=== PATIENT | female | born 1940 | race Caucasian/White ===

== ENCOUNTER → 2016-12-20 | Outpatient (CLI) | payer OTHER, MEDICAID ==
[2015-02-01 10:58] VITALS: BP 132/62
[~2016-12-20] MED LIST: GABA-585 PO; HYDR200T PO; LEVO75TA PO; MELO7.5T29 PO; METH2.5T PO; PRED5TAB PO; SERT25TA PO; TRIA1CAP3 PO
--- NOTE | 2016-12-20 12:37 | KCIC ---
3 views lumbar spine dated 12/20/2016. Comparison made to MRI dated 05/07/2015 Clinical indication: Chronic low back pain. FINDINGS: AP lateral and coned-down views of lumbosacral junction were obtained. Grade 1 anterolisthesis of L3 on L4 and L4 on L5. There is severe disc space narrowing at the L3-L4 level, progressed from prior exam. There is also progressive disc space narrowing at the L3-L4 level. Mild hypertrophic change of the superior and inferior endplates throughout. Moderate arthrosis of the lower lumbar apophyseal joints. Vertebral body heights are maintained. IMPRESSION: 1. Moderate multilevel spondylosis with progressive disc space narrowing at L3-L4 and L4-L5. 2. Grade 1 anterolisthesis of L3 on L4 and L4 on L5, likely degenerative. Electronically signed by: Jt Bolden MD (12/20/2016 12:34 PM) [facility]
== END | disposition home or self-care (01) ==
LOC: KCIC 11:45
PROVIDERS: ATTEND Psychiatry & Neurology Neurology with Special Qualifications in Child Neurology
DX: M51.36 Other intervertebral disc degeneration, lumbar region (principal); G62.9 Polyneuropathy, unspecified; G89.29 Other chronic pain; M47.896 Other spondylosis, lumbar region
CPT/HCPCS: 72100

== ENCOUNTER 2016-12-29 07:12 | Day surgery (SDC) | payer OTHER, MEDICAID ==
[~2016-12-29] VITALS: Ht 162.6 cm; Wt 130.0 kg
[~2016-12-29 07:12] MED LIST changes: +HYDROmorphone 2 MG/ML VIAL IV PRN; +IV RINGERS,LACTATED 1000ML 1,000 ML IV SCH; +LIDOCAINE 1% 1 ML SYRINGE. ID PRN; +MORPHINE SULFATE 2 MG/ML DISP.SYRIN. IV PRN; +ONDANSETRON PF 4 MG/2 ML VIAL. IV PRN; +PROCHLORPERAZINE 10 MG/2 ML VIAL. IV PRN; +fentaNYL PF VIAL 100 MCG/2 ML VIAL IV PRN
[2016-12-29] MEDS ORDERED: LIDOCAINE 2% PF Vial for OR 5 ML VIAL. ONE ×6 (07:48→07:54)
[2016-12-29] MEDS ORDERED: PROPOFOL 0 ML IV ONE (07:48)
[2016-12-29] MEDS ORDERED: 0.9 % SODIUM CHLORIDE 50 ML VIAL. IJ ONE (07:48)
[2016-12-29] MEDS ORDERED: fentaNYL PF VIAL 100 MCG/2 ML VIAL ONE ×2 (07:56→11:58)
[2016-12-29] MEDS ORDERED: BUPIVACAINE 0.25% 50 ML VIAL. ONE (09:01)
[2016-12-29] MEDS ORDERED: HYDR-965 PO (11:44)
--- NOTE | 2016-12-29 11:44 | DISCH ---
DISCHARGE INSTRUCTIONS Condition on Discharge Condition on Discharge: Stable Activity After Discharge Activity Instructions for Disc: Other, see below Other activity instructions: gentle elbow motion, fine motor use Diet after Discharge Diet after Discharge: Regular Wound Incision Care Wound/Incision Care: Ice to area for comfort, Change dressing Other wound/incision instructi: remove dressing 3 days may then shower Contacting the DRDavid after DC Call your doctor for: Concerns you may have Follow-Up Follow up with: Dee 10 days RAE SLADE MD Dec 29, 2016 11:44
[2016-12-29] MEDS ORDERED: HYDROmorphone 2 MG/ML VIAL ONE (11:58)
[2016-12-29] MEDS: fentaNYL PF VIAL 100 MCG/2 ML VIAL IV PRN ×2 (12:03→12:33)
[2016-12-29] MEDS ORDERED: HYDROcodone/APAP 7.5/325MG 1 TAB TABLET ONE (12:44)
[2016-12-29] MEDS ORDERED: HYDROcodone/APAP 7.5/325MG 1 TAB TABLET PO ONE (12:45)
[2016-12-29 13:35] VITALS: BP 131/66
--- NOTE | 2016-12-30 09:16 | PDOC ---
BRIEF OPERATIVE NOTE Date: Dec 29, 2016 Pre-Op Diagnosis left cubital tunnel syndrome Post-Op Diagnosis same Procedure Performed left cubital tunnel release Surgeon Dee Anesthesia Type: General Blood Loss 15cc Findings severe nerve compression Complications none RAE SLADE MD Dec 30, 2016 09:16
--- NOTE | 2016-12-30 11:42 | OP ---
DATE OF SURGERY: 12/29/2016 PREOPERATIVE DIAGNOSIS: Left cubital tunnel syndrome. POSTOPERATIVE DIAGNOSIS: Left cubital tunnel syndrome. PROCEDURE: Left cubital tunnel release. SURGEON: Kahlil Price M.D. ESTIMATED BLOOD LOSS: 15 mL. COMPLICATIONS: None. OPERATIVE INDICATIONS: The patient is a 76-year-old female with severe tingling and numbness in ulnar nerve distribution on the left, which had the condition verified by EMG testing. She is severely affected in her activities of daily living and ulnar nerve distribution sensation frequently gives her pain, numbness, tingling that affect her sleep and daily activities giving her weakness as well, has been progressive in nature despite non operative treatment. I have gone over with her the risks, benefits, postoperative course of the procedure for release and the possibility of infection, nerve or blood vessel damage, medical or other anesthetic complications among others. The rationale for postoperative rehabilitation mobilizing the nerve so it does not get scarred down, which can also cause later symptoms and above all that the nerve may not come back all the way, particularly the longer and the harder it is damaged and even getting the pressure off of that with the resultant and complete for even instability of the nerves. We talked about the possibility of transposition in the case where instability is present. All her questions were answered regarding the surgery and she wishes to proceed with operative evaluation and treatment. OPERATIVE TECHNIQUE: The patient was identified, procedure verified, the patient placed in supine position on the operating table. Tourniquet was placed on the upper arm and arm was prepped and draped in the standard sterile fashion. After timeout was performed, the patient and procedure identified and verified, left upper extremity was exsanguinated, tourniquet inflated to 250 mmHg. A curvilinear incision was made over the medial aspect of the elbow. Dissection carried out down to the root of the cubital tunnel area and the ulnar nerve was explored proximally first and the opening antecubital tunnel itself, there was noted to be very significant compression and hyperemia of the nerves. The release was carried out throughout the length of the cubital tunnel as well as proximally where the intermuscular septum was released and dissection excised to avoid impingement and distally including the insertion into the left supinator musculature and its overlying fascia. The nerve was noted to be stable throughout elbow range of motion after release and was noted to be freely. Thorough irrigation carried out with normal saline solution. Bleeding points were controlled by electrocautery. Tourniquet was let down. The subcutaneous closure was accomplished with buried Vicryl sutures, skin closure with jareth. Sterile soft dressings were applied. The patient was returned to recovery room in stable condition, having tolerated the procedure well. KAHLIL PRICE MD DR: TIN/kin JOB#: [id number] / [id number]
== END 2016-12-29 13:56 | disposition home or self-care (01) ==
LOC: SURG 07:12
PROVIDERS: ATTEND Orthopaedic Surgery
DX: G56.22 Lesion of ulnar nerve, left upper limb (principal); G62.9 Polyneuropathy, unspecified; I10 Essential (primary) hypertension; E66.9 Obesity, unspecified; Z68.45 Body mass index [BMI] 70 or greater, adult; E03.9 Hypothyroidism, unspecified; M19.90 Unspecified osteoarthritis, unspecified site; F32.9 Major depressive disorder, single episode, unspecified; Z98.41 Cataract extraction status, right eye; Z98.42 Cataract extraction status, left eye; Z96.643 Presence of artificial hip joint, bilateral; Z90.710 Acquired absence of both cervix and uterus; Z87.39 Personal history of other diseases of the musculoskeletal system and connective tissue; Z88.2 Allergy status to sulfonamides
CPT/HCPCS: 64718; C1769; J3010; J7120; J1170; J2704; J3490; J2001

== ENCOUNTER 2018-09-16 10:42 | Emergency (ER) | payer OTHER, MEDICAID ==
[~2018-09-16] VITALS: Ht 162.6 cm; Wt 97.1 kg
[~2018-09-16 10:42] MED LIST changes: +HYDR-3165 PO; -HYDR200T PO; +HYDR200T71 PO; -HYDROmorphone 2 MG/ML VIAL IV PRN; -IV RINGERS,LACTATED 1000ML 1,000 ML IV SCH; -LIDOCAINE 1% 1 ML SYRINGE. ID PRN; -MORPHINE SULFATE 2 MG/ML DISP.SYRIN. IV PRN; -ONDANSETRON PF 4 MG/2 ML VIAL. IV PRN; -PROCHLORPERAZINE 10 MG/2 ML VIAL. IV PRN; -fentaNYL PF VIAL 100 MCG/2 ML VIAL IV PRN
[2018-09-16] MEDS ORDERED: IV NORMAL SALINE 1000ML BAG 1,000 ML IV ONE (11:15)
[2018-09-16] MEDS ORDERED: methylPREDNISolone SOD SUCC PF 125 MG/2 ML VIAL. IV ONE (11:15)
[2018-09-16] MEDS ORDERED: IPRATRPIUM/ALBUTEROL 0.5/2.5MG 3 ML NEBU. NEB ONE (11:15)
--- NOTE | 2018-09-16 11:30 | EKG ---
[facility] [address] [place] [address] Test Date: 2018-09-16 Test Time: 10:59:55 Pat Name: KATIE SELF Department: Room: Gender: F [employer] Sales Representative: : 1940 Requested By: STAFF NON Order Number: [id number] Reading MD: Slick Marquez Measurements Intervals Uledi Rate: 101 P: SD: QRS: -91 QRSD: 122 T: 32 QT: 364 QTc: 479 Interpretive Statements SINUS RHYTHM PACS LEFT ANTERIOR FASCICULAR BLOCK INCOMPLETE RIGHT BUNDLE BRANCH BLOCK RVH WITH REPOLARIZATION ABNORMALITY Electronically Signed On 09-20-2018 9:19:08 CDT by Slick Marquez
[2018-09-16 11:32] LABS: BASO # 0.1 x10^3/uL (0.0-0.2); BASO % 1 % (0-3); EOS # 0.2 x10^3/uL (0.0-0.7); EOS % 3 % (0-3); HEMATOCRIT 38.3 % (36.0-47.0); HEMOGLOBIN 12.6 g/dL (12.0-15.5); LYMPH # 1.5 x10^3/uL (1.0-4.8); LYMPH % 18 % (24-48); MEAN CORPUSCULAR HEMOGLOBIN 32 pg (25-35); MEAN CORPUSCULAR HGB CONC 33 g/dL (31-37); MEAN CORPUSCULAR VOLUME 97 fL (79-100); MONO # 0.8 x10^3/uL (0.0-1.1); MONO % 10 % (0-9); NEUT # 5.7 x10^3uL (1.8-7.7); NEUT % 68 % (31-73); PLATELET COUNT 413 x10^3/uL (140-400); RED BLOOD COUNT 3.94 x10^6/uL (3.50-5.40); RED CELL DISTRIBUTION WIDTH 22.1 % (11.5-14.5); WHITE BLOOD COUNT 8.3 x10^3/uL (4.0-11.0)
--- NOTE | 2018-09-16 11:35 | RAD ---
CHEST PA LATERAL History: Cough and congestion for 3 weeks Comparison: February 10, 2013 Findings: 2 views of the chest are submitted. There is no infiltrate, pneumothorax, or effusion. The cardiac silhouette is within normal limits in size. There is somewhat tortuous thoracic aorta, atherosclerotic calcification near arch. Impression: 1. There is no radiographic evidence of acute cardiopulmonary disease. Electronically signed by: Danny Diaz MD (09/16/2018 11:32 AM) [facility]
[2018-09-16 11:40] LABS: CALCIUM 9.1 mg/dL (8.5-10.1); CREATININE 0.9 mg/dL (0.6-1.0); GFR 60.6; POTASSIUM 3.7 mmol/L (3.5-5.1)
[2018-09-16 11:46] LABS: ALBUMIN 3.7 g/dL (3.4-5.0); ALBUMIN/GLOBULIN RATIO 0.9 (1.0-1.7); TOTAL BILIRUBIN 0.5 mg/dL (0.2-1.0)
[2018-09-16] MEDS ORDERED: cefTRIAXone IV Push 1 GM VIAL. IVP ONE (12:15)
[2018-09-16 12:29] LABS: ANISOCYTOSIS SLIGHT; PLT ESTIMATE ADEQUATE (ADEQUATE)
[2018-09-16 12:30] LABS: BIZZARE CELLS OCC
[2018-09-16] MEDS ORDERED: AZIT250T PO (12:36)
[2018-09-16] MEDS ORDERED: ALBU2.5V8 INH (12:36)
[2018-09-16] MEDS ORDERED: BENZ100C PO (12:36)
[2018-09-16] MEDS ORDERED: PRED50TA PO (12:36)
--- NOTE | 2018-09-16 12:36 | PHYS DOC ---
Past Medical History Past Medical History: Arthritis, Depression, Hypothyroid, Other Additional Past Medical Histor: CARPAL TUNNEL (ROB THIBODEAUX APRN) Past Surgical History: Hip Replacement, Hysterectomy, Other Additional Past Surgical Histo: BACK, NECK (ROB THIBODEAUX APRN) Alcohol Use: None Drug Use: None (ROB THIBODEAUX APRN) Adult General Chief Complaint Chief Complaint: COUGH HPI HPI Patient is a 78 year old female who presents with a worsening cough with wheezing and mild shortness of air 3 weeks. The patient saw her primary care provider approximately 2 weeks ago. She was told to use [id number] cough and cold medication. The patient is been taking Delsym and Mucinex. She states she has continued to worsen. She denies a history of asthma or COPD. (ROB THIBODEAUX APRN) Review of Systems Review of Systems Constitutional: Denies fever or chills [] Eyes: Denies change in visual acuity, redness, or eye pain [] HENT: Denies nasal congestion or sore throat [] Respiratory: See history of present illness Cardiovascular: No additional information not addressed in HPI [] GI: Denies abdominal pain, nausea, vomiting, bloody stools or diarrhea [] : Denies dysuria or hematuria [] Musculoskeletal: Denies back pain or joint pain [] Integument: Denies rash or skin lesions [] Neurologic: Denies headache, focal weakness or sensory changes [] Endocrine: Denies polyuria or polydipsia [] All other systems were reviewed and found to be within normal limits, except as documented in this note. (ROB THIBODEAUX APRN) Current Medications Current Medications Current Medications Medications (Trade) Dose Ordered Sig/Sandra Start Time Stop Time Status Last Admin Dose Admin Albuterol/ Ipratropium (Duoneb) 3 ml 1X ONCE 09/16/18 11:15 09/16/18 11:16 DC 09/16/18 11:27 3 ML Ceftriaxone Sodium (Rocephin) 1 gm 1X ONCE 09/16/18 12:15 09/16/18 12:16 DC 09/16/18 12:21 1 GM Methylprednisolone Sodium Succinate (SOLU-Medrol 125MG VIAL) 125 mg 1X ONCE 09/16/18 11:15 09/16/18 11:16 DC 09/16/18 11:32 125 MG Sodium Chloride 1,000 ml @ 1,000 mls/hr 1X ONCE 09/16/18 11:15 09/16/18 12:14 DC 09/16/18 11:33 1,000 MLS/HR (ELY ROBLES MD) Allergies Allergies Allergies Coded Allergies Type Severity Reaction Last Updated Verified Sulfa (Sulfonamide Antibiotics) Allergy Unknown 05/07/15 No (ELY ROBLES MD) Physical Exam Physical Exam Constitutional: Well developed, well nourished, no acute distress, non-toxic appearance. [] HENT: Normocephalic, atraumatic, bilateral tympanic membranes normal, oropharynx moist, no oral exudates, nose normal. [] Eyes: PERRLA, EOMI, conjunctiva normal, no discharge. [] Neck: Normal range of motion, no tenderness, supple, no stridor. [] Cardiovascular:Heart rate regular rhythm, no murmur [] Lungs & Thorax: Bilateral breath sounds show wheezing throughout Abdomen: Bowel sounds normal, soft, no tenderness, no masses, no pulsatile masses. [] Skin: Warm, dry, no erythema, no rash. [] Back: No tenderness, no CVA tenderness. [] Extremities: No tenderness, no cyanosis, no clubbing, ROM intact, no edema. [] Neurologic: Alert and oriented X 3, normal motor function, normal sensory function, no focal deficits noted. [] Psychologic: Affect normal, judgement normal, mood normal. [] (ROB THIBODEAUX APRN) Current Patient Data Vital Signs Vital Signs Date Time Temp Pulse Resp B/P (MAP) Pulse Ox O2 Delivery O2 Flow Rate FiO2 09/16/18 13:01 84 18 123/60 (81) 94 Room Air 09/16/18 11:06 98.2 98.2 (ELY ROBLES MD) Lab Values Laboratory Tests Test 09/16/18 11:00 09/16/18 11:18 White Blood Count 8.3 x10^3/uL (4.0-11.0) Red Blood Count 3.94 x10^6/uL (3.50-5.40) Hemoglobin 12.6 g/dL (12.0-15.5) Hematocrit 38.3 % (36.0-47.0) Mean Corpuscular Volume 97 fL (79-100) Mean Corpuscular Hemoglobin 32 pg (25-35) Mean Corpuscular Hemoglobin Concent 33 g/dL (31-37) Red Cell Distribution Width 22.1 % (11.5-14.5) H Platelet Count 413 x10^3/uL (140-400) H Neutrophils (%) (Auto) 68 % (31-73) Lymphocytes (%) (Auto) 18 % (24-48) L Monocytes (%) (Auto) 10 % (0-9) H Eosinophils (%) (Auto) 3 % (0-3) Basophils (%) (Auto) 1 % (0-3) Neutrophils # (Auto) 5.7 x10^3uL (1.8-7.7) Lymphocytes # (Auto) 1.5 x10^3/uL (1.0-4.8) Monocytes # (Auto) 0.8 x10^3/uL (0.0-1.1) Eosinophils # (Auto) 0.2 x10^3/uL (0.0-0.7) Basophils # (Auto) 0.1 x10^3/uL (0.0-0.2) Platelet Estimate Adequate (ADEQUATE) Anisocytosis Slight RBC Morphology Bizarre Forms Occ Sodium Level 137 mmol/L (136-145) Potassium Level 3.7 mmol/L (3.5-5.1) Chloride Level 98 mmol/L (98-107) Carbon Dioxide Level 27 mmol/L (21-32) Anion Gap 12 (6-14) Blood Urea Nitrogen 20 mg/dL (7-20) Creatinine 0.9 mg/dL (0.6-1.0) Estimated GFR (Cockcroft-Gault) 60.6 BUN/Creatinine Ratio 22 (6-20) H Glucose Level 95 mg/dL (70-99) Calcium Level 9.1 mg/dL (8.5-10.1) Total Bilirubin 0.5 mg/dL (0.2-1.0) Aspartate Amino Transferase (AST) 23 U/L (15-37) Alanine Aminotransferase (ALT) 20 U/L (14-59) Alkaline Phosphatase 102 U/L (46-116) Total Protein 8.0 g/dL (6.4-8.2) Albumin 3.7 g/dL (3.4-5.0) Albumin/Globulin Ratio 0.9 (1.0-1.7) L Lactic Acid Level 1.1 mmol/L (0.4-2.0) Laboratory Tests 09/16/18 11:00 Laboratory Tests 09/16/18 11:00 Microbiology 09/16/18 Blood Culture - Preliminary, Resulted NO GROWTH AFTER 1 DAY (ELY ROBLES MD) EKG EKG [] (ROB THIBODEAUX APRN) Radiology/Procedures Radiology/Procedures [] (ROB THIBODEAUX APRN) Course & Med Decision Making Course & Med Decision Making Pertinent Labs and Imaging studies reviewed. (See chart for details) []The patient was given Solu-Medrol and a DuoNeb treatment in the emergency department with resolution of her wheezing. She was given a gram of Rocephin. (ROB THIBODEAUX APRN) Course & Med Decision Making Staff Physician Addendum: I was working in the ER during the course of this patient's visit. I was available for consultation as needed, but I was not directly involved in the care of this patient. (ELY ROBLES MD) Dragon Disclaimer Dragon Disclaimer This electronic medical record was generated, in whole or in part, using a voice recognition dictation system. (ROB THIBODEAUX APRN) Departure Departure Impression: Primary Impression: Bronchitis Disposition: 01 HOME, SELF-CARE Condition: STABLE Referrals: FRANCISCO VEGA MD (PCP) Patient Instructions: Acute Bronchitis Additional Instructions: Take medication as directed. Follow-up with your primary care provider in one week for recheck or return to the emergency department if worsening. Scripts Benzonatate (TESSALON PERLE) 100 Mg Capsule 1 CAP PO TID for cough, #21 CAP Prov: ROB THIBODEAUX APRN 09/16/18 Albuterol Sulfate (PROAIR HFA INHALER) 8.5 Gm Hfa.aer.ad 1 PUFF INH PRN Q6HRS PRN for SHORTNESS OF BREATH, #1 INHALER 0 Refills Prov: ROB THIBODEAUX APRN 09/16/18 Prednisone (PREDNISONE) 50 Mg Tablet 1 TAB PO DAILY for respiratory infection, #5 TAB Prov: ROB THIBODEAUX APRN 09/16/18 Azithromycin (ZITHROMAX) 250 Mg Tablet 1 PKG PO UD for respiratory infection, #1 PKG Prov: ROB THIBODEAUX APRN 09/16/18 ROB THIBODEAUX APRN Sep 16, 2018 12:36 ELY ROBLES MD Sep 17, 2018 18:38
[2018-09-16 13:01] VITALS: BP 123/60
== END 2018-09-16 13:05 | disposition home or self-care (01) ==
LOC: ER 10:42
DX: J40 Bronchitis, not specified as acute or chronic (principal); E03.9 Hypothyroidism, unspecified; Z88.2 Allergy status to sulfonamides
CPT/HCPCS: 36415; 71046; 80053; 83605; 85025; 87040; 93005; 94640; 96374; 96375; 99285; J0696; J2930; J7030; J7620

== ENCOUNTER 2019-03-17 09:15 | Emergency (ER) | payer OTHER, MEDICAID ==
[~2019-03-17] VITALS: Ht 160 cm; Wt 99.8 kg
[~2019-03-17 09:15] MED LIST changes: +ALBU2.5V8 INH; +AZIT250T PO; +BENZ100C PO; +PRED50TA PO
--- NOTE | 2019-03-17 11:24 | PHYS DOC ---
Past Medical History Past Medical History: Arthritis, Depression, Hypothyroid, Other Additional Past Medical Histor: CARPAL TUNNEL Past Surgical History: Hip Replacement, Hysterectomy, Other Additional Past Surgical Histo: BACK, NECK Alcohol Use: None Drug Use: None Adult General Chief Complaint Chief Complaint: [facility] HPI Patient is a 78 year old female who presents with complaining of fall and back pain. Patient states she had an accidental fall from a standing position and landed on her gluteal area with pain in tailbone and low back and left hand and this morning had problem with walking to the bathroom even with using care walker. Patient rated her pain as a moderate pain and states she took tramadol this morning and doesn't want to have pain medication in ER. Patient denies loss of consciousness and other injuries and focal neurodeficit and taking blood thinner medication Review of Systems Review of Systems Constitutional: Denies fever or chills [] Eyes: Denies change in visual acuity, redness, or eye pain [] HENT: Denies nasal congestion or sore throat [] Respiratory: Denies cough or shortness of breath [] Cardiovascular: No additional information not addressed in HPI [] GI: Denies abdominal pain, nausea, vomiting, bloody stools or diarrhea [] : Denies dysuria or hematuria [] Musculoskeletal: Reports back pain and joint pain Integument: Denies rash or skin lesions [] Neurologic: Denies headache, focal weakness or sensory changes [] Endocrine: Denies polyuria or polydipsia [] All other systems were reviewed and found to be within normal limits, except as documented in this note. Allergies Allergies Allergies Coded Allergies Type Severity Reaction Last Updated Verified Sulfa (Sulfonamide Antibiotics) Allergy Unknown 05/07/15 No Physical Exam Physical Exam Constitutional: Well developed, well nourished, mild distress, non-toxic appearance. [] HENT: Normocephalic, atraumatic. Eyes: PERRLA, EOMI, conjunctiva normal, no discharge. [] Neck: Normal range of motion, no tenderness, supple, no stridor. [] Cardiovascular:Heart rate regular rhythm, no murmur [] Lungs & Thorax: Bilateral breath sounds clear to auscultation [] Abdomen: Bowel sounds normal, soft, no tenderness, no masses, no pulsatile masses. [] Skin: Warm, dry, no erythema, no rash. [] Back: No midline tenderness, coccyx tenderness without deformity, no CVA tenderness. [] Extremities: No tenderness, no cyanosis, no clubbing, ROM intact, no edema, left hand without sign of injury or edema. [] Neurologic: Alert and oriented X 3, no focal deficits noted. [] Psychologic: Affect normal, judgement normal, mood normal. [] Current Patient Data Vital Signs Vital Signs Date Time Temp Pulse Resp B/P (MAP) Pulse Ox O2 Delivery O2 Flow Rate FiO2 03/17/19 11:28 72 20 97 03/17/19 09:32 96.9 150/68 (95) Room Air 96.9 EKG EKG [] Radiology/Procedures Radiology/Procedures [][facility] [address] [place] [address] IMAGING REPORT Signed PATIENT: KATIE SELF ACCOUNT: [id number] : 1940 LOCATION: ER AGE: 78 SEX: F EXAM STATUS: REG ER ORD. PHYSICIAN: EDEL ACUÑA MD REASON: fall, pain left hand PROCEDURE: HAND LEFT 3V HAND LEFT 3V History: Fall. Pain. Technique: 3 views left hand. Comparison: None. Findings: Normal alignment. No fracture. Advanced first carpal metacarpal triscaphe DJD. Chronic ununited ulnar styloid fracture. Impression: 1. No acute osseous abnormality. 2. Advanced first carpometacarpal and triscaphe DJD. 3. Chronic ununited ulnar styloid fracture. Electronically signed by: Derek Patel DO (03/17/2019 11:27 AM) [facility] DICTATED and SIGNED BY: DEREK PATEL DO DATE: 03/17/19 1127 [facility] [address] [place] [address] IMAGING REPORT Signed PATIENT: KATIE SELF ACCOUNT: [id number] : 1940 LOCATION: ER AGE: 78 SEX: F EXAM STATUS: REG ER ORD. PHYSICIAN: EDEL ACUÑA MD REASON: fall,pain lower back PROCEDURE: LUMBAR SPINE 2-3V LUMBAR SPINE 2-3V, SACRUM COCCYX 3V History: Fall. Low back pain. Technique: 3 views lumbar spine and 3 views sacrum. Comparison: None. Findings: Mild rightward curvature of the lumbar spine. Grade 1 anterolisthesis L3 on L4 and L4 on L5. Normal vertebral body height. No fracture. Advanced multilevel lumbar degenerative disc disease and facet arthropathy. Bilateral hip arthroplasties. Normal alignment of the sacroiliac joints. No fracture. Impression: 1. No acute osseous abnormality. 2. Advanced multilevel lumbar spondylosis. Electronically signed by: Derek Patel DO (03/17/2019 11:24 AM) [facility] DICTATED and SIGNED BY: DEREK PATEL DO DATE: 03/17/191123 [facility] [address] [place] [address] IMAGING REPORT Signed PATIENT: KATIE SELF ACCOUNT: [id number] : 1940 LOCATION: ER AGE: 78 SEX: F EXAM STATUS: REG ER ORD. PHYSICIAN: EDEL ACUÑA MD REASON: fall,pain in tailbone PROCEDURE: SACRUM & COCCYX 3V LUMBAR SPINE 2-3V, SACRUM COCCYX 3V History: Fall. Low back pain. Technique: 3 views lumbar spine and 3 views sacrum. Comparison: None. Findings: Mild rightward curvature of the lumbar spine. Grade 1 anterolisthesis L3 on L4 and L4 on L5. Normal vertebral body height. No fracture. Advanced multilevel lumbar degenerative disc disease and facet arthropathy. Bilateral hip arthroplasties. Normal alignment of the sacroiliac joints. No fracture. Impression: 1. No acute osseous abnormality. 2. Advanced multilevel lumbar spondylosis. Electronically signed by: Derek Patel DO (03/17/2019 11:24 AM) [facility] DICTATED and SIGNED BY: DEREK PATEL DO DATE: 03/17/191123 Course & Med Decision Making Course & Med Decision Making Pertinent Imaging studies reviewed. (See chart for details) Evaluation of patient in ER showed 78-year-old male patient with a fall and injury to tailbone last night. Patient had unremarkable physical exam except for tenderness of the coccyx area. X-ray of left hand and lumbar spine and coccyx and sacral area was unremarkable. Patient has pain medication at home and doesn't want to have pain medication. Patient was advised to apply ice on the affected area and follow-up with her primary care physician. I've spoken with the patient and/or caregivers. I've explained the patient's condition, diagnosis and treatment plan based on information available to me at this time. I've answered the patient's and/or caregivers questions and addressed any concerns. The patient and/or caregivers have a good understanding the patient's diagnosis, condition and treatment plan as can be expected at this point. Vital signs have been stabilized. The patient's condition is stable for discharge from the emergency department. The patient will pursue further outpatient evaluation with her primary care provider or other designated consulting physician as outlined in the discharge instructions. Patient and/or caregivers are agreeable to this plan of care and follow-up instructions have been explained in detail. The patient and/or caregivers have received these instructions in written format and expressed understanding of these discharge instructions. The patient and her caregivers are aware that if any significant change in condition or worsening of symptoms should prompt him to immediately return to this of the closest emergency department. If an emergent department is not readily available I would encourage him to call 911. Rosaura Disclaimer Dragon Disclaimer This electronic medical record was generated, in whole or in part, using a voice recognition dictation system. Departure Departure Impression: Primary Impression: Coccyx contusion Additional Impressions: Fall at home Contusion of hand excluding finger Acute lumbosacral myofascial strain Disposition: HOME, SELF-CARE (at 1141) Condition: STABLE Referrals: FRANCISCO VEGA MD (PCP) Patient Instructions: Contusion, Fall Prevention and Home Safety, Lumbosacral Strain, Tailbone Injury Additional Instructions: Apply ice on the affected area Follow-up with your primary care physician in 3-5 days Return to ER if not getting better Continue home pain medication Problem Qualifiers Primary Impression: Coccyx contusion Encounter type: initial encounter Qualified Codes: S30.0XXA - Contusion of lower back and pelvis, initial encounter Additional Impressions: Fall at home Encounter type: subsequent encounter Qualified Codes: W19.XXXD - Unspecified fall, subsequent encounter; Y92.009 - Unspecified place in unspecified non-institutional (private) residence as the place of occurrence of the external cause Acute lumbosacral myofascial strain Encounter type: subsequent encounter Qualified Codes: S39.012D - Strain of muscle, fascia and tendon of lower back, subsequent encounter EDEL ACUÑA MD Mar 17, 2019 11:24
--- NOTE | 2019-03-17 11:27 | RAD ---
LUMBAR SPINE 2-3V, SACRUM COCCYX 3V History: Fall. Low back pain. Technique: 3 views lumbar spine and 3 views sacrum. Comparison: None. Findings: Mild rightward curvature of the lumbar spine. Grade 1 anterolisthesis L3 on L4 and L4 on L5. Normal vertebral body height. No fracture. Advanced multilevel lumbar degenerative disc disease and facet arthropathy. Bilateral hip arthroplasties. Normal alignment of the sacroiliac joints. No fracture. Impression: 1. No acute osseous abnormality. 2. Advanced multilevel lumbar spondylosis. Electronically signed by: Derek Patel DO (03/17/2019 11:24 AM) [facility]
[2019-03-17 11:28] VITALS: BP 110/67
--- NOTE | 2019-03-17 11:30 | RAD ---
HAND LEFT 3V History: Fall. Pain. Technique: 3 views left hand. Comparison: None. Findings: Normal alignment. No fracture. Advanced first carpal metacarpal triscaphe DJD. Chronic ununited ulnar styloid fracture. Impression: 1. No acute osseous abnormality. 2. Advanced first carpometacarpal and triscaphe DJD. 3. Chronic ununited ulnar styloid fracture. Electronically signed by: Derek Patel DO (03/17/2019 11:27 AM) [facility]
== END 2019-03-17 11:53 | disposition home or self-care (01) ==
LOC: ER 09:15
DX: S39.012A Strain of muscle, fascia and tendon of lower back, initial encounter (principal); S30.0XXA Contusion of lower back and pelvis, initial encounter; S60.222A Contusion of left hand, initial encounter; M19.90 Unspecified osteoarthritis, unspecified site; F32.9 Major depressive disorder, single episode, unspecified; E03.8 Other specified hypothyroidism; Z90.710 Acquired absence of both cervix and uterus; Z96.649 Presence of unspecified artificial hip joint; Z88.2 Allergy status to sulfonamides; W18.39XA Other fall on same level, initial encounter; Y93.89 Activity, other specified; Y92.009 Unspecified place in unspecified non-institutional (private) residence as the place of occurrence of the external cause; Y99.8 Other external cause status
CPT/HCPCS: 72100; 72220; 73130; 99284

== ENCOUNTER → 2020-02-23 | Outpatient (CLI) | payer MEDICARE, MEDICAID ==
[~2020-02-23] MED LIST changes: +IOHEXOL 300 MG/ML 100ML VIAL. IV ONE; -LEVO75TA PO; +LEVO75TA90 PO
--- NOTE | 2020-02-23 12:59 | KCIC ---
EXAM: CT CHEST WITH CONTRAST HISTORY: Axillary lymphadenopathy COMPARISON: Chest radiograph 09/16/2018 TECHNIQUE: Helical CT of the chest performed after administration of 95 mL Omnipaque 300 intravenous contrast. Coronal and sagittal reformats were obtained. One or more of the following individualized dose reduction techniques were utilized for this examination: 1. Automated exposure control 2. Adjustment of the mA and/or kV according to patient size 3. Use of iterative reconstruction technique. FINDINGS: Thyroid gland and thoracic inlet: Normal. Heart and great vessels: Heart is normal in size. No pericardial effusion. There are coronary artery calcifications. The thoracic aorta is normal in caliber with mild calcified atherosclerosis. 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 Mediastinum and víctor: No lymphadenopathy. Lungs and pleura: Mild nonspecific subpleural reticular changes. The lungs are otherwise clear. No pleural effusion. Chest wall and axillae: Chest wall is normal. There is no axillary lymphadenopathy. Upper abdomen: There is a 1.7 x 0.8 cm hypodense mass in the pancreatic head (image 67, series 2). Bones: Moderate degenerative disc disease throughout the spine. There is a old L2 superior endplate compression fracture. There is 5 mm anterolisthesis of C7 on T1. Cervical fusion hardware is noted. IMPRESSION: 1. No lymphadenopathy in the chest. 2. 1.7 cm hypodense mass in the pancreatic head. This could be a cyst or intraductal papillary mucinous neoplasm, however given the size recommend further evaluation with MRI with pancreas protocol. Electronically signed by: Elis Lucero MD (02/23/2020 12:56 PM) [id number]
== END | disposition home or self-care (01) ==
LOC: KCIC CT 08:09
PROVIDERS: ATTEND Family Medicine
DX: R59.0 Localized enlarged lymph nodes (principal); I25.10 Atherosclerotic heart disease of native coronary artery without angina pectoris; I70.0 Atherosclerosis of aorta; M51.36 Other intervertebral disc degeneration, lumbar region; S32.009A Unspecified fracture of unspecified lumbar vertebra, initial encounter for closed fracture; X58.XXXA Exposure to other specified factors, initial encounter; Y93.89 Activity, other specified; Y92.89 Other specified places as the place of occurrence of the external cause; Y99.8 Other external cause status; M43.13 Spondylolisthesis, cervicothoracic region
CPT/HCPCS: 71260; Q9967

== ENCOUNTER → 2020-03-03 | Outpatient (CLI) | payer MEDICARE, MEDICAID ==
[~2020-03-03] MED LIST changes: +GADOTERATE 7.5 MMOL/15ML VIAL. IVP ONE; -IOHEXOL 300 MG/ML 100ML VIAL. IV ONE
--- NOTE | 2020-03-03 17:18 | KCIC ---
MRI of the abdomen without and with contrast 03/03/2020 CLINICAL HISTORY: Cystic lesion seen within the pancreatic head on recent CT scan. MRI was recommended for evaluation. TECHNIQUE: Unenhanced in and out phase T1-weighted axial, diffusion-weighted axial, T2-weighted axial and fat saturated T2-weighted axial and coronal images of the abdomen were obtained. After the intravenous administration of 18 cc of Clariscan, dynamic enhanced fat saturated T1-weighted axial images of the abdomen were obtained. FINDINGS: Comparison is made to the patient's CT scan of the chest which included the upper abdomen dated 02/23/2020. A cystic mass lesion which contains a cluster of cystic structures which communicates with a side branch of the main pancreatic duct is seen involving the head of the pancreas. This measures 2.4 cm in greatest diameter. This corresponds to the low-attenuation lesion seen on the patient's CT scan. 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 Two additional smaller oval-shaped cystic lesions are seen on the T2-weighted images involving the body and tail of pancreas, measuring 1.1 and 1.5 cm in size. They communicate with a side branch of the main pancreatic duct and are consistent with additional branch duct IPMNs. No additional abnormality of the pancreas is seen. The liver, and adrenal glands are within normal limits. A 1.1 cm rounded high signal intensity lesion is seen on the T2-weighted images involving the superior aspect of the spleen consistent with a cyst. Rounded high signal intensity lesions are seen scattered throughout both kidneys which measure 3 mm to 9 mm in size. These likely represent cysts. No further imaging workup is recommended. The abdominal aorta tapers normally. The gallbladder is well-distended. No free fluid is seen. There is no evidence of bowel obstruction. No area of abnormal contrast enhancement is noted. Very mild S-shaped curvature of the thoracolumbar spine is seen. Degenerative changes are seen involving the lower thoracic and throughout the lumbar spine. IMPRESSION: Cystic lesions are seen involving the pancreas consistent with a branch duct IPMNs. The largest lesion involves the head of the pancreas (measuring 2.4 cm in size). This corresponds to the abnormality seen on the patient's recent CT scan. Electronically signed by: Campos Arias MD (03/03/2020 5:15 PM) [id number]
== END ==
LOC: KCIC MRI 08:57
PROVIDERS: ATTEND Family Medicine
DX: K86.89 Other specified diseases of pancreas (principal)
CPT/HCPCS: 74183; A9575

== ENCOUNTER 2020-05-22 18:09 | Emergency (ER) | payer MEDICARE, MEDICAID ==
[~2020-05-22] VITALS: Ht 165.1 cm; Wt 98.0 kg
[~2020-05-22 18:09] MED LIST changes: -GADOTERATE 7.5 MMOL/15ML VIAL. IVP ONE
[2020-05-22] MEDS ORDERED: HYDR-3164 PO (18:32)
--- NOTE | 2020-05-22 18:32 | PHYS DOC ---
Past Medical History Past Medical History: Arthritis, Depression, Hypothyroid, Other Additional Past Medical Histor: CARPAL TUNNEL Past Surgical History: Hip Replacement, Hysterectomy, Other Additional Past Surgical Histo: BACK, NECK Smoking Status: Former Smoker Alcohol Use: None Drug Use: None General Adult HPI: HPI: Patient is a 79 year old female past medical history arthritis hypothyroid presents to the emergency department for evaluation of left ankle pain after a mechanical fall. Patient states yesterday she was using her walker when her lef t foot got caught in the wheel and patient fell to the ground. Patient denies any history of hitting her head. There is no loss of consciousness. Patient denies any head neck back shoulder wrist hip or knee pain. Patient's only complaint is left ankle pain. On exam there is swelling along the medial lateral aspect of her ankle. Her cap refill is less than 2 seconds. Patient has full range of motion of her left ankle. Review of Systems: Review of Systems: Constitutional: Denies fever or chills. [] Eyes: Denies change in visual acuity. [] HENT: Denies nasal congestion or sore throat. [] Respiratory: Denies cough or shortness of breath. [] Cardiovascular: Denies chest pain or edema. [] GI: Denies abdominal pain, nausea, vomiting, bloody stools or diarrhea. [] : Denies dysuria. [] Musculoskeletal: Denies back painpositive ankle pain positive left ankle swelling Integument: Denies rash. [] Neurologic: Denies headache, focal weakness or sensory changes. [] Endocrine: Denies polyuria or polydipsia. [] Lymphatic: Denies swollen glands. [] Psychiatric: Denies depression or anxiety. [] Heart Score: Risk Factors: Risk Factors: DM, Current or recent (<one month) smoker, HTN, HLP, family history of CAD, obesity. Risk Scores: Score 0 - 3: 2.5% MACE over next 6 weeks - Discharge Home Score 4 - 6: 20.3% MACE over next 6 weeks - Admit for Clinical Observation Score 7 - 10: 72.7% MACE over next 6 weeks - Early Invasive Strategies Allergies: Allergies: Allergies Coded Allergies Type Severity Reaction Last Updated Verified Sulfa (Sulfonamide Antibiotics) Allergy Unknown 05/07/15 No Physical Exam: PE: Constitutional: Well developed, well nourished, no acute distress, non-toxic appearance. [] HENT: Normocephalic, atraumatic, bilateral external ears normal, oropharynx moist, no oral exudates, nose normal. [] Eyes: PERRLA, EOMI, conjunctiva normal, no discharge. [] Neck: Normal range of motion, no tenderness, supple, no stridor. [] Cardiovascular:Heart rate regular rhythm, no murmur [] Lungs & Thorax: Bilateral breath sounds clear to auscultation [] Abdomen: Bowel sounds normal, soft, no tenderness, no masses, no pulsatile masses. [] Skin: Warm, dry, no erythema, no rash. [] Back: No tenderness, no CVA tenderness. [] Extremities: No tenderness, no cyanosis, no clubbing, decreased range of motion of left ankle, no deformities noted, positive edema left ankle left foot toes neurovascular intact Neurologic: Alert and oriented X 3, normal motor function, normal sensory function, no focal deficits noted. [] Psychologic: Affect normal, judgement normal, mood normal. [] EKG: EKG: [] Radiology/Procedures: Radiology/Procedures: [] Impression: Wet Read Distal fibular fracture 1. Mildly displaced distal fibular metaphyseal fracture. 2. Lateral predominant ankle soft tissue swelling. 3. Bone demineralization. Course & Med Decision Making: Course & Med Decision Making Pertinent Labs and Imaging studies reviewed. (See chart for details) [] Patient was placed in a posterior sugar tong splint by nursing. Splint was reevaluated post application lower extremity neurovascularly intact. Patient was provided crutches able to ambulate. Discussed patient with orthopedics Dr. Price. Patient to follow-up in his office patient will need to call to schedule an appointment. Rosaura Disclaimer: Rosaura Disclaimer: This electronic medical record was generated, in whole or in part, using a voice recognition dictation system. Departure Departure Impression: Primary Impression: Left lateral ankle pain Additional Impressions: Fall Closed fibular fracture Disposition: 01 DC HOME SELF CARE/HOMELESS Condition: STABLE Referrals: FRANCISCO VEGA MD (PCP) Patient Instructions: Ankle Pain, Fibular Fracture, Ankle, Adult, Treated with or without Immobilization Additional Instructions: Patient to be referred to Dr Price. Scripts Hydrocodone/Apap 5-325 (NORCO 5-325 TABLET) 1 Each Tablet 1 TAB PO TID, #20 TAB Prov: KAVITHA,FLORA I DO 05/22/20 FLORA PLUMMER DO May 22, 2020 18:32
--- NOTE | 2020-05-22 19:38 | RAD ---
EXAM: Left ankle, 3 views HISTORY: Pain. COMPARISON: None. FINDINGS: 3 views of the left ankle are obtained. There is a mildly displaced distal fibular metaphys eal fracture. There is a tiny ossicle inferior to the medial malleolus, the appearance of which favor s changes due to a remote fracture. The ankle mortise is intact. No osteochondral lesion is seen. The re is diffuse lateral predominant soft tissue swelling. There is bone demineralization. There are vas cular and soft tissue calcifications. There is a small posterior spur. IMPRESSION: 1. Mildly displaced distal fibular metaphyseal fracture. 2. Lateral predominant ankle soft tissue swelling. 3. Bone demineralization. Electronically signed by: Sakshi Andrade MD (05/22/2020 7:36 PM) [facility]
[2020-05-22 21:01] VITALS: BP 120/64
== END 2020-05-22 21:37 | disposition home or self-care (01) ==
LOC: ER 18:09
DX: S82.832A Other fracture of upper and lower end of left fibula, initial encounter for closed fracture (principal); E03.9 Hypothyroidism, unspecified; Z87.891 Personal history of nicotine dependence; Z88.2 Allergy status to sulfonamides; W18.39XA Other fall on same level, initial encounter; Y93.89 Activity, other specified; Y92.89 Other specified places as the place of occurrence of the external cause; Y99.8 Other external cause status
CPT/HCPCS: 29515; 73610; 99284; 99285

== ENCOUNTER → 2020-05-28 | Outpatient (CLI) | payer MEDICARE, MEDICAID ==
[2020-05-22 21:01] VITALS: BP 120/64
[~2020-05-28] MED LIST changes: +ACET-1797 PO; +CHOL500050 PO; +HYDR-2759 PO; +HYDR-3164 PO; +LEVO125T5 PO; +PREG-9 PO; +TRAM50TA PO
== END ==
LOC: LAB 12:07
PROVIDERS: ATTEND Orthopaedic Surgery
DX: Z01.812 Encounter for preprocedural laboratory examination (principal); Z20.822 Contact with and (suspected) exposure to COVID-19
CPT/HCPCS: U0003

== ENCOUNTER 2020-06-01 12:44 | Day surgery (SDC) | payer MEDICARE, MEDICAID ==
[~2020-06-01] VITALS: Ht 156.2 cm; Wt 100.7 kg
[~2020-06-01 12:44] MED LIST changes: -HYDR-2759 PO; +HYDROmorphone 2 MG/ML VIAL IV PRN; +IV RINGERS,LACTATED 1000ML 1,000 ML IV SCH; +LIDOCAINE 1% PF 2 ML VIAL. ID PRN; +MORPHINE SULFATE 2 MG/ML VIAL. IV PRN; +ONDANSETRON PF 4 MG/2 ML VIAL. IV PRN; +PROCHLORPERAZINE 10 MG/2 ML VIAL. IV PRN; +fentaNYL PF VIAL 100 MCG/2 ML VIAL IV PRN
[2020-06-01 13:49] LABS: BASO # 0.1 x10^3/uL (0.0-0.2); BASO % 1 % (0-3); EOS # 0.1 x10^3/uL (0.0-0.7); EOS % 2 % (0-3); HEMOGLOBIN 12.5 g/dL (12.0-15.5); LYMPH # 1.2 x10^3/uL (1.0-4.8); LYMPH % 22 % (24-48); MEAN CORPUSCULAR HEMOGLOBIN 31 pg (25-35); MEAN CORPUSCULAR HGB CONC 34 g/dL (31-37); MEAN CORPUSCULAR VOLUME 93 fL (79-100); MONO # 0.7 x10^3/uL (0.0-1.1); MONO % 14 % (0-9); NEUT # 3.3 x10^3/uL (1.8-7.7); NEUT % 62 % (31-73); PLATELET COUNT 338 x10^3/uL (140-400); RED BLOOD COUNT 3.97 x10^6/uL (3.50-5.40); RED CELL DISTRIBUTION WIDTH 23.4 % (11.5-14.5); WHITE BLOOD COUNT 5.4 x10^3/uL (4.0-11.0)
[2020-06-01 14:02] LABS: CREATININE 0.8 mg/dL (0.6-1.0); GFR 69.2; POTASSIUM 3.5 mmol/L (3.5-5.1)
[2020-06-01 15:03] LABS: ANISOCYTOSIS MOD; PLT ESTIMATE ADEQUATE (ADEQUATE); POIKILOCYTOSIS SLIGHT
[2020-06-01] MEDS ORDERED: fentaNYL PF VIAL 100 MCG/2 ML VIAL ONE ×2 (15:31→16:50)
[2020-06-01] MEDS ORDERED: ONDANSETRON PF 4 MG/2 ML VIAL. ONE (16:15)
[2020-06-01] MEDS ORDERED: DEXAMETHASONE SOD PHOS 4 MG/ML VIAL ONE (16:15)
[2020-06-01] MEDS ORDERED: PROPOFOL 10 MG/ML (20ML) VIAL. IV ONE (16:15)
[2020-06-01] MEDS ORDERED: LIDOCAINE 2% PF 5 ML VIAL. ONE (16:15)
[2020-06-01] MEDS ORDERED: SEVOFLURANE 61 TO 120 MINUTES. IH ONE (16:16)
[2020-06-01] MEDS ORDERED: KETOROLAC 30 MG/ML VIAL. ONE (16:33)
--- NOTE | 2020-06-01 16:51 | DISCH ---
DISCHARGE INSTRUCTIONS Condition on Discharge Condition on Discharge: Stable Activity After Discharge Activity Instructions for Disc: Other, see below (May use the leg in the splint to put weight on to pivot and transfer, recommend not walking on it) Weight Bearing Status after Di: As tolerated Diet after Discharge Diet after Discharge: Regular Wound Incision Care Wound/Incision Care: Ice to area for comfort, Do not change dressing (Keep splint intact call if any drainage or other problems) Contacting the DRDavid after DC Call your doctor for: Concerns you may have Follow-Up Follow up with: Dr. Price 2 weeks RAE PRICE MD Jun 01, 2020 16:51
[2020-06-01] MEDS: fentaNYL PF VIAL 100 MCG/2 ML VIAL IV PRN ×2 (16:53→17:01)
[2020-06-01] MEDS ORDERED: HYDR-2759 PO (17:01)
[2020-06-01] MEDS ORDERED: HYDROcodone/APAP 5/325MG 1 TAB TABLET PO ONE ×2 (17:15)
[2020-06-01 17:32] VITALS: BP 133/72
--- NOTE | 2020-06-01 19:30 | PDOC4 ---
Operative Note Operative Note Date of surgery: 06/01/2020 Preoperative diagnosis: Left distal fibular fracture with lateral talar shift Postoperative diagnosis: Same Operative procedure: Operative reduction internal fixation left distal fibula fracture Surgeon: Dee Skating Carhop: Jose bonilla Anesthesia: General Estimated blood loss: 15 cc Complications: None Operative indications: Libby is a 79-year-old female that followed up in our clinic after nonoperative treatment of a left ankle fracture. Repeat x-rays shown in our clinic showed a lateral talar shift and I had discussed with her the rationale for operative treatment to correct the ankle alignment. We also discussed possibility of infection nonhealing nerve or blood vessel damage pain instability medical or other anesthetic complications among others along with the rationale for performing surgery. She wishes to proceed with surgical evaluation and treatment which is planned today on an outpatient basis Operative text: Patient was identified procedure verified patient placed in the supine position on the operating table. After adequate amounts of general anesthesia were administered the left lower extremity was prepped and draped in standard sterile fashion with a thigh tourniquet. After timeout was performed patient procedure identified and verified the left lower extremity was exsanguinated by Esmarch bandage tourniquet inflated to 250 mmHg a lateral incision was made and subperiosteal dissection carried out over the distal fibula. Intervening tissue cleared from the fracture site a 6-hole Peter distal fibular locking plate was placed and anatomic reduction carried out of the distal fibula a single shaft screw was placed in a nonlocking fashion to obtain shaft fixation and with reduction under multiple fluoroscopic views the ankle mortise was noted to be anatomically reduced. Distal locking screws were then placed additional shaft screws placed proximally and distally to maintain anatomic reduction of the fibular fracture. No instability was noted on stress testing. There irrigation carried out normal saline solution subcutaneous closure accomplished with buried Vicryl suture and skin closure accomplished with jareth a sterile soft dressings were applied and a well-padded posterior splint. Toes were noted be warm pink following deflation of tourniquet patient was returned to recovery room stable condition having tolerated procedure well. Jose bonilla was present for the procedure assisted in prepping draping retraction closure and dressings RAE SLADE MD Jun 01, 2020 19:30
== END 2020-06-01 18:05 | disposition home or self-care (01) ==
LOC: SURG 12:44
PROVIDERS: ATTEND Orthopaedic Surgery
DX: S82.832A Other fracture of upper and lower end of left fibula, initial encounter for closed fracture (principal); I10 Essential (primary) hypertension; M19.90 Unspecified osteoarthritis, unspecified site; E03.9 Hypothyroidism, unspecified; F32.9 Major depressive disorder, single episode, unspecified; E66.9 Obesity, unspecified; Z85.828 Personal history of other malignant neoplasm of skin; Z90.710 Acquired absence of both cervix and uterus; Z98.890 Other specified postprocedural states; Z79.899 Other long term (current) drug therapy; Z87.891 Personal history of nicotine dependence; Z88.2 Allergy status to sulfonamides; Z88.8 Allergy status to other drugs, medicaments and biological substances; X58.XXXA Exposure to other specified factors, initial encounter; Y93.89 Activity, other specified; Y92.89 Other specified places as the place of occurrence of the external cause; Y99.8 Other external cause status
CPT/HCPCS: 27792; 36415; 80048; 85025; C1713; J0690; J1100; J1885; J2405; J2704; J3010; 76000

== ENCOUNTER 2021-03-21 10:20 | Inpatient (IN) | payer MEDICARE, MEDICAID ==
[~2021-03-21] VITALS: Ht 165.1 cm; Wt 102.9 kg
[~2021-03-21 10:20] MED LIST changes: +HYDR-2759 PO; -HYDROmorphone 2 MG/ML VIAL IV PRN; -IV RINGERS,LACTATED 1000ML 1,000 ML IV SCH; -LIDOCAINE 1% PF 2 ML VIAL. ID PRN; -MORPHINE SULFATE 2 MG/ML VIAL. IV PRN; -ONDANSETRON PF 4 MG/2 ML VIAL. IV PRN; -PROCHLORPERAZINE 10 MG/2 ML VIAL. IV PRN; -fentaNYL PF VIAL 100 MCG/2 ML VIAL IV PRN
--- NOTE | 2021-03-21 10:24 | PHYS DOC ---
Past Medical History Past Medical History: Arthritis, Depression, Hypothyroid, Other Additional Past Medical Histor: CARPAL TUNNEL Past Surgical History: Hip Replacement, Hysterectomy, Other Additional Past Surgical Histo: BACK, NECK Smoking Status: Former Smoker Alcohol Use: None Drug Use: None General Adult EDM: Chief Complaint: RAPID HEART RATE HPI: HPI: Patient is a 80 year old female who presents from her primary care physician office this morning for evaluation of new onset atrial fibrillation with RVR. The patient reports that she has been feeling intermittently dizzy for an unknown time. She reports that she has felt slightly worse over the past few days. She does report palpitations. She reports chronic but unchanged chest and back pain, for which she has previously seen cardiology, and she has had normal outpatient cardiac catheterization, per her report and her daughter's report. No change in chest pain symptoms today. She denies any active pain at present. She denies syncope, fall, focal weakness, numbness or tingling, facial droop, speech difficulty. She denies abdominal pain, nausea or vomiting. She has chronic somatic pain, chronic joint pain. She reports he has a history of fibromyalgia and rheumatoid arthritis. She reports no known history of coronary artery disease or arrhythmia previously. She was being seen her primary care physician's office routinely today, when atrial fibrillation was noticed. Review of Systems: Review of Systems: Constitutional: Denies fever or chills. [] Eyes: Denies change in visual acuity. [] HENT: Denies nasal congestion or sore throat. [] Respiratory: Denies cough or shortness of breath. [] Cardiovascular: History of chronic chest pain, not present currently. Denies syncope. GI: Denies abdominal pain, nausea, vomiting, bloody stools or diarrhea. [] : Denies urinary symptoms. Musculoskeletal: Ports chronic but unchanged diffuse back and chest pain and chronic diffuse joint pain. Integument: Denies rash. [] Neurologic: Denies headache, focal weakness or sensory changes. He does report some dizziness/lightheadedness. Denies syncope. Endocrine: Denies polyuria or polydipsia. [] Lymphatic: Denies swollen glands. [] Psychiatric: Denies depression or anxiety. [] Heart Score: C/O Chest Pain: No Risk Factors: Risk Factors: DM, Current or recent (<one month) smoker, HTN, HLP, family history of CAD, obesity. Risk Scores: Score 0 - 3: 2.5% MACE over next 6 weeks - Discharge Home Score 4 - 6: 20.3% MACE over next 6 weeks - Admit for Clinical Observation Score 7 - 10: 72.7% MACE over next 6 weeks - Early Invasive Strategies Allergies: Allergies: Allergies Coded Allergies Type Severity Reaction Last Updated Verified scopolamine Allergy Intermediate Rash 06/01/20 Yes Sulfa (Sulfonamide Antibiotics) Adverse Reaction Intermediate Nausea and Vomiting 06/01/20 No adhesive tape Adverse Reaction Intermediate SKIN IRRITATION 06/01/20 Yes Physical Exam: PE: Constitutional: Well developed, well nourished, no acute distress, non-toxic appearance. [] HENT: Normocephalic, atraumatic, bilateral external ears normal, oropharynx moist, no oral exudates, nose normal. [] Eyes: Sclera are clear and anicteric. Neck: Normal range of motion, no tenderness, supple, no stridor. Trachea is midline. Cardiovascular: Irregularly irregular, tachycardic, heart rate in the 120s to 1 30s. She is well-perfused appearing. Cap refill is brisk. +2 radial and posterior tibial pulses bilaterally. Lungs & Thorax: Bilateral breath sounds clear to auscultation, no rales, rhonchi or wheezes. No evidence of respiratory distress. Abdomen: Bowel sounds normal, soft, no tenderness, no masses, no pulsatile masses. [] Skin: Warm, dry, no erythema, no rash. [] Back: No tenderness, no CVA tenderness. [] Extremities: No tenderness, no cyanosis, no clubbing, ROM intact, no calf tenderness. Neurologic: Alert and oriented X 3, normal motor function, normal sensory function, no focal deficits noted. [] Psychologic: Affect normal, judgement normal, mood normal. [] EKG: EKG: EKG is interpreted at 1026 Rhythm is irregularly irregular, consistent with atrial fibrillation, with rapid ventricular response rate is 147 bpm [place] is right Right bundle branch block, incomplete No STEMI Radiology/Procedures: Radiology/Procedures: IMAGING REPORT Signed PATIENT: KATIE SELF ACCOUNT: [id number] : 1940 LOCATION: ER AGE: 80 SEX: F EXAM STATUS: PRE ER ORD. PHYSICIAN: BENNIE FRY DO REASON: chest pain PROCEDURE: PORTABLE CHEST 1V XR CHEST 1V History: Reason: chest pain / Spl. Instructions: / History: Comparison: September 16, 2018 Findings: Mild reticular interstitial thickening. No pleural effusion. No pneumothorax. Normal heart size. Postop changes cervical spine. Glenohumeral DJD. Impression: 1. Mild reticular interstitial thickening, likely related to chronic interstitial changes. Electronically signed by: Derek Patel DO (03/21/2021 11:48 AM) [id number] DICTATED and SIGNED BY: DEREK PATEL DO DATE: 03/21/21 [id number] Course & Med Decision Making: Course & Med Decision Making Pertinent Labs and Imaging studies reviewed. (See chart for details) The patient continues to deny any active chest pain here. She is given 1 dose of IV diltiazem bolus. Heart rate is in the 70s. She is given p.o. aspirin and subcu Lovenox. I have discussed the findings, differential diagnosis and plan of care with the patient and her daughter. I have explained my recommendation for admission to the hospital for cardiology consultation and echocardiogram and further discussion of possible chronic anticoagulation treatment. She is amenable to this. She is comfortable with the plan of care. She is accepted for admission by Dr. Rodríguez. Rosaura Disclaimer: Rosaura Disclaimer: This electronic medical record was generated, in whole or in part, using a voice recognition dictation system. Departure Departure Impression: Primary Impression: Atrial fibrillation with rapid ventricular response Disposition: ADMITTED INPATIENT Admitting Physician: PATRIA Condition: STABLE Referrals: FRANCISCO VEGA MD (PCP) BENNIE FRY DO Mar 21, 2021 10:24
[2021-03-21] MEDS ORDERED: ASPIRIN ENTERIC COATED 325 MG TABLET.DR. PO ONE (11:00)
[2021-03-21 11:03] LABS: BASO # 0.1 x10^3/uL (0.0-0.2); BASO % 1 % (0-3); EOS # 0.2 x10^3/uL (0.0-0.7); EOS % 3 % (0-3); HEMATOCRIT 38.5 % (36.0-47.0); HEMOGLOBIN 12.5 g/dL (12.0-15.5); LYMPH # 1.1 x10^3/uL (1.0-4.8); LYMPH % 20 % (24-48); MEAN CORPUSCULAR HEMOGLOBIN 31 pg (25-35); MEAN CORPUSCULAR HGB CONC 33 g/dL (31-37); MEAN CORPUSCULAR VOLUME 96 fL (79-100); MONO % 18 % (0-9); NEUT # 3.3 x10^3/uL (1.8-7.7); NEUT % 58 % (31-73); PLATELET COUNT 321 x10^3/uL (140-400); RED BLOOD COUNT 4.03 x10^6/uL (3.50-5.40); RED CELL DISTRIBUTION WIDTH 25.4 % (11.5-14.5); WHITE BLOOD COUNT 5.7 x10^3/uL (4.0-11.0)
[2021-03-21 11:12] LABS: CALCIUM 8.6 mg/dL (8.5-10.1); CREATININE 0.8 mg/dL (0.6-1.0); POTASSIUM 3.6 mmol/L (3.5-5.1)
[2021-03-21 11:20] LABS: ALBUMIN 3.5 g/dL (3.4-5.0); ALBUMIN/GLOBULIN RATIO 0.9 (1.0-1.7); MAGNESIUM 1.8 mg/dL (1.8-2.4); TOTAL BILIRUBIN 0.9 mg/dL (0.2-1.0); TOTAL PROTEIN 7.3 g/dL (6.4-8.2)
--- NOTE | 2021-03-21 11:50 | RAD ---
XR CHEST 1V History: Reason: chest pain / Spl. Instructions: / History: Comparison: September 16, 2018 Findings: Mild reticular interstitial thickening. No pleural effusion. No pneumothorax. Normal heart size. Post op changes cervical spine. Glenohumeral DJD. Impression: 1. Mild reticular interstitial thickening, likely related to chronic interstitial changes. Electronically signed by: Derek Patel DO (03/21/2021 11:48 AM) [id number]
[2021-03-21 11:59] LABS: % BANDS 11 % (0-9); % BASOS 1 % (0-3); % EOS 2 % (0-5); % LYMPHS 14 % (24-48); % MONOS 22 % (0-10); % SEGS 50 % (35-66)
[2021-03-21 12:00] LABS: ANISOCYTOSIS MARKED; HYPOCHROMIA MOD; OVALOCYTES FEW; PLT ESTIMATE ADEQUATE (ADEQUATE); SCHISTOCYTES FEW
[2021-03-21 12:03] LABS: TOXIC GRANULATION SLIGHT
[2021-03-21] MEDS ORDERED: HYDROcodone/APAP 5/325MG 1 TAB TABLET PO PRN ×2 (14:30)
[2021-03-21] MEDS ORDERED: traMADol 50 MG TABLET PO PRN (14:30)
--- NOTE | 2021-03-21 14:53 | HP ---
DATE OF SERVICE: 03/21/2021 ADMIT DATE: 03/21/2021 CHIEF COMPLAINT: Palpitations. HISTORY OF PRESENT ILLNESS: The patient is a pleasant 80-year-old female who went to her primary care doctor's office this morning. The PCP notes that she had an arrhythmia; sent her to the ER, where we discovered she has AFib with RVR. She was given 1 dose of Cardizem in the ER, that seemed to have dropped her rate back to 78. I discussed the case with ER physician. We are going to admit the patient and consult Cardiology. PAST MEDICAL HISTORY: Arthritis, depression, hypothyroidism, carpal tunnel surgery, hip replacement, hysterectomy, back and neck surgery, previous tobacco abuse. ALLERGIES: SULFA, ADHESIVE TAPE AND SCOPOLAMINE. FAMILY HISTORY: Diabetes. SOCIAL HISTORY: She quit smoking. No drink or drugs. She is retired, used to work in real estate. She lives at home with her daughter. MEDICATIONS: Reviewed. Please refer to the MRAD. REVIEW OF SYSTEMS: GENERAL: No history of weight change, weakness or fevers. SKIN: No bruising, hair changes or rashes. EYES: No blurred, double or loss of vision. NOSE AND THROAT: No history of nosebleeds, hoarseness or sore throat. CARDIAC: She complains of palpitations. LUNGS: Denies cough, hemoptysis, wheezing or shortness of breath. GASTROINTESTINAL: Denies changes in appetite, nausea, vomiting, diarrhea or constipation. GENITOURINARY: No history of frequency, urgency, hesitancy or nocturia. NEUROLOGIC: Denies history of numbness, tingling, tremor or weakness. PSYCHIATRIC: No history of panic, anxiety or depression. ENDOCRINE: No history of heat or cold intolerance, polyuria or polydipsia. EXTREMITIES: Denies muscle weakness, joint pain, pain on walking or stiffness. PHYSICAL EXAMINATION: VITALS: Within normal limits and are stable. GENERAL: No apparent distress. Alert and oriented. HEENT: Normal cephalic atraumatic, external auditory canals are patent. EYES: Extraocular muscles are intact, pupils are equally round and reactive to light and accommodation. MUSCULOSKELETAL: Well developed, well nourished, good range of motion. ENDOCRINE: No thyromegaly was palpated. LYMPHATICS: No cervical chain or axillary nodes were noted. HEMATOPOIETIC: No bruising. NECK: Supple, no JVD, no thyromegaly was noted. LUNGS: Clear to auscultation in all lung lim without rhonchi or wheezing. CARDIAC: She has irregular S1 and S2 at 78 beats per minute. ABDOMEN: Soft, nontender. Positive bowel sounds no organomegaly, normal bowel sounds. EXTREMITIES: Without any cyanosis, clubbing, or edema. Pedal pulses intact, Homans sign is negative. NEUROLOGIC: Normal speech, normal tone. A and O x 3, moves all extremities, no obvious focal deficits. PSYCHIATRIC: Normal affect, normal mood. Stable. SKIN: No ulcerations or rashes, good skin turgor, no jaundice. VASCULAR: Good capillary refill, neurovascular bundle appears to be intact. DIAGNOSTIC DATA: Chest x-ray shows some mild reticular interstitial thickening, likely related to chronic interstitial changes. Hematology is normal. Electrolytes are normal except for a sodium of 133. Troponin is high at 32. BNP high at 30-31. ASSESSMENT AND PLAN: Atrial fibrillation with rapid ventricular response with elevated troponin, suspect possible myocardial infarction, but will await Cardiology input. We gave her a dose of Cardizem. Cardiac monitoring, serial enzymes, serial EKGs, home meds, DVT prophylaxis. Full code. We did order Lovenox 100 mg subcutaneous x 1 until further clarified by Cardiology. Prognosis guarded. KERLINE DR: Maribell TID: [id number]
[2021-03-21 16:22] LABS: BILIRUBIN,URINE NEGATIVE (NEG); CLARITY,URINE CLEAR; COLOR,URINE YELLOW; NITRITE,URINE NEGATIVE (NEG); PH,URINE 5.5 (<5.0-8.0); PROTEIN,URINE NEGATIVE (NEG-TRACE)
[2021-03-21 16:55] LABS: BACTERIA,URINE FEW /HPF (0-FEW); RBC,URINE 0 /HPF (0-2)
[2021-03-21 16:56] LABS: HYALINE CASTS, URINE OCCASIONAL /HPF
[2021-03-21] MEDS ORDERED: LEVO137T3 PO (17:37)
[2021-03-21] MEDS ORDERED: METH2.5T PO (17:37)
[2021-03-21] MEDS ORDERED: PREG100C PO (17:37)
[2021-03-21 20:00] VITALS: BP 140/72
[2021-03-21] MEDS: PREGABALIN 50 MG CAPSULE PO SCH (20:49)
[2021-03-21] MEDS ORDERED: [UNRECOGNIZED DRUG - OTHER] PO SCH (21:00)
[2021-03-21] MEDS ORDERED: ACETAMINOPHEN PO SCH (21:00)
[2021-03-21] MEDS ORDERED: PREGABALIN 75 MG CAPSULE PO SCH (21:00)
[2021-03-21] MEDS ORDERED: DIPHENHYDRAMINE PO SCH (21:00)
--- NOTE | 2021-03-21 21:37 | NUR ---
The patient, KATIE SELF, 80 y/o, F admitted by SHILA CARDENAS MD, was given written information regarding hospital policies, unit procedures and contact persons. Valuables were checked and documented. Call light in reach will cont to monitor pt safety and status. pmrn
[2021-03-21 23:00] VITALS: BP 150/67
[2021-03-22] VITALS (12 sets, daily range): BP systolic 104–166; BP diastolic 53–84
--- NOTE | 2021-03-22 05:52 | EKG ---
[facility] [address] [place] [address] Test Date: 2021-03-21 Test Time: 10:23:14 Pat Name: KATIE SELF Department: Room: [facility] Gender: F Delivery Agent: : 1940 Requested By: BENNIE FRY Order Number: [id number] Reading MD: Slick Marquez Measurements Intervals [place] Rate: 147 P: MO: QRS: 257 QRSD: 118 T: 62 QT: 304 QTc: 483 Interpretive Statements RAPID ATRIAL FIBRILLATION LEFT ANTERIOR FASCICULAR BLOCK INCOMPLETE RIGHT BUNDLE BRANCH BLOCK Electronically Signed On 03-28-2021 10:46:24 [employer] by Slick Marquez
[2021-03-22] MEDS: LEVOTHYROXINE 125 MCG TABLET PO SCH ×2 (07:28→10:05)
[2021-03-22] MEDS ORDERED: TRIAMTERENE/HCTZ 37.5/25MG TABLET. PO SCH (09:00)
[2021-03-22] MEDS: CHOLECALCIFEROL (VITAMIN D3) 5,000 UNIT CAPSULE PO SCH (10:05)
[2021-03-22] MEDS: PREGABALIN 50 MG CAPSULE PO SCH ×3 (10:05→21:03)
[2021-03-22] MEDS: SERTRALINE 50 MG TABLET. PO SCH (10:06)
[2021-03-22] MEDS ORDERED: methylPREDNISolone SOD SUCC PF 125 MG/2 ML VIAL. IV ONE (11:00)
--- NOTE | 2021-03-22 11:11 | PDOC2 ---
VICTOR MANUEL OCAMPO ENTRY ENGINEER 03/22/21 1111: CARDIAC CONSULT DATE OF CONSULT Date of Consult DATE: 03/22/21 TIME: 10:36 REASON FOR CONSULT Reason for Consult: AFIB REFERRING PHYSICIAN Referring Physician: Marcos SOURCE Source: Chart review, Patient HISTORY OF PRESENT ILLNESS HISTORY OF PRESENT ILLNESS This is a pleasant 80 yo female admitted for complains of chest pressure. She has been having some SOA and wheeze in the last few weeks and has been having nonproductive cough. She went to her PCP yesterday and told her that her HR was fast and she is on AFIB which is new. No fever or chills. No diaphoresis. No recent falls or injury. No passing out. Her chest pressure nonradiating started yesterday. Presently denies any discomfort. No hx of VTE, GI bleed, CAD or arrhythmias. She has not been feeling any palpitations but has been feeling fatigue. Positive for RA and fibromyalgia. She is vaccinated with [employer] PAST MEDICAL HISTORY Cardiovascular: HTN Pulmonary: COPD, Pneumonia CENTRAL NERVOUS SYSTEM: Other (No pertinent history) GI: No pertinent hx Heme/Onc: No pertinent hx Hepatobiliary: No pertinent hx Psych: Depression Musculoskeletal: Osteoarthritis Rheumatologic: Rheumatoid arthritis Infectious disease: No pertinent hx ENT: Allergic Rhinitis Renal/: No pertinent hx Endocrine: Hypothyroidism Dermatology: No pertinent hx PAST SURGICAL HISTORY Past Surgical History: Appendectomy, Arthroscopy (ORIF left ankle), Total hip replacement (left), Tonsillectomy, Hysterectomy, Other (lumbar laminectomy; cervical fusion) FAMILY HISTORY Family History noncontributory SOCIAL HISTORY Smoke: Quit (remotely) ALCOHOL: none Drugs: None Lives: with Family CURRENT MEDICATIONS CURRENT MEDICATIONS Current Medications Medications (Trade) Dose Ordered Sig/Sandra Route PRN Reason Start Time Stop Time Status Last Admin Dose Admin Diltiazem HCl (Cardizem Iv Push) 10 mg 1X ONCE IVP 03/21/21 11:00 03/21/21 11:01 DC 03/21/21 11:02 Aspirin (Ecotrin) 325 mg 1X ONCE PO 03/21/21 11:00 03/21/21 11:01 DC 03/21/21 11:03 Enoxaparin Sodium (Lovenox 100mg Syringe) 100 mg 1X ONCE SQ 03/21/21 11:00 03/21/21 11:01 DC 03/21/21 11:04 Levothyroxine Sodium (Synthroid) 125 mcg DAILY06 PO 03/22/21 06:00 03/22/21 10:05 Sertraline HCl (Zoloft) 150 mg DAILY PO 03/22/21 09:00 03/22/21 10:06 Vitamin D (Vitamin D3) 5,000 unit DAILY PO 03/22/21 09:00 03/22/21 10:05 Triamterene/HCTZ (Maxzide 37.5/ 25mg) 1 tab DAILY PO 03/22/21 09:00 03/22/21 10:05 Pregabalin (Lyrica) 100 mg TID PO 03/21/21 21:00 03/22/21 10:05 Diltiazem HCl (Cardizem 24hr Cd) 120 mg DAILY PO 03/22/21 09:00 03/22/21 10:09 ALLERGIES ALLERGIES: Coded Allergies: scopolamine (Verified Allergy, Intermediate, Rash, 06/01/20) Sulfa (Sulfonamide Antibiotics) (Unverified Adverse Reaction, Intermediate, Nausea and Vomiting, 06/01/20) adhesive tape (Verified Adverse Reaction, Intermediate, SKIN IRRITATION, 06/01/20) ROS Review of System 14 point ROS evaluated with pertinent positives noted per HPI PHYSICAL EXAM General: Alert, Oriented X3, Cooperative, No acute distress HEENT: Atraumatic, Mucous membr. moist/pink Lungs: Other (diffuse wheeze) Heart: Other (AFIB RVR) Abdomen: Soft, No tenderness Extremities: No cyanosis, No edema Skin: No breakdown, No significant lesion Neuro: Normal speech, Sensation intact Psych/Mental Status: Mental status NL, Mood NL MUSCULOSKELETAL: Osteoarthritic changes both hands VITALS/I&O VITALS/I&O: Vital Signs Date Time Temp Pulse Resp B/P (MAP) Pulse Ox O2 Delivery O2 Flow Rate FiO2 03/22/21 10:24 98.5 118 17 166/83 (110) 93 Room Air 98.5 I & O 03/21/21 03/21/21 03/22/21 15:00 23:00 07:00 Intake Total 0 ml 300 ml Output Total 0 ml 0 ml Balance 0 ml 300 ml LABS Lab: Laboratory Tests Test 03/21/21 14:40 03/21/21 16:11 03/21/21 22:05 Troponin I High Sensitivity 37 ng/L (4-50) 50 ng/L (4-50) Free Thyroxine 1.37 ng/dL (0.76-1.46) Urine Collection Type Void Urine Color Yellow Urine Clarity Clear Urine pH 5.5 (<5.0-8.0) Urine Specific [place] 1.015 (1.000-1.030) Urine Protein Negative mg/dL (NEG-TRACE) Urine Glucose (UA) Negative mg/dL (NEG) Urine Ketones (Stick) Negative mg/dL (NEG) Urine Blood Negative (NEG) Urine Nitrite Negative (NEG) Urine Bilirubin Negative (NEG) Urine Urobilinogen Dipstick 1.0 mg/dL (0.2 mg/dL) Urine Leukocyte Esterase Negative (NEG) Urine RBC 0 /HPF (0-2) Urine WBC 1-4 /HPF (0-4) Urine Squamous Epithelial Cells Few /LPF Urine Bacteria Few /HPF (0-FEW) Urine Hyaline Casts Occasional /HPF Urine Mucus Mod /LPF ASSESSMENT/PLAN ASSESSMENT/PLAN 1. AFIB RVR: new finding 2. Chest pain: likely from above 3. HTN: on maxide at home 4. Hypothyroidism: TSH not on goal per PCP 5. Hx of RA and fibromyalgia: on methotrexate 6. AECOPD: possible ILD Recommendations 1. Will adjust cardizem CD per BP and rate. Dig IV x1. No BB with wheezing 2. Start on eliquis, discussed with pt 3. CT chest no contrast. Will likely need pulmonary referral. X1 solumedrol 4. FLP, TTE. Consider outpt CIRA w/u 5. Consider for outpt ischemic w/u 6. HENNA/CVN tomorrow 7. Consult pulmonary ASIM MURPHY MD 03/22/212148: CARDIAC CONSULT ASSESSMENT/PLAN ASSESSMENT/PLAN Pt. seen and examined. Agree with above PLANT PROPAGATOR note. Discussed with patient and family. We will continue medical therapy and consider CVN tmrw if rate control not adequate. Not great candidate for amiodarone with thyroid and interstitial lung issues possibly. Consider flecainide and CVN tmrw depending on symptoms. Thanks. VICTOR MANUEL OCAMPO APRN Mar 22, 2021 11:11 ASIM MURPHY MD Mar 22, 2021 21:49
[2021-03-22] MEDS ORDERED: DIGOXIN IV 500 MCG/2 ML AMPUL. IV ONE (11:15)
[2021-03-22] MEDS: APIXABAN 5 MG TABLET. PO SCH ×2 (11:28→21:01)
--- NOTE | 2021-03-22 11:31 | CARD ---
MR#: [id number] Date of Study: 03/22/2021 Ordering Physician: VICTOR MANUEL OCAMPO, Referring Physician: VICTOR MANUEL OCAMPO Tech: Yvon Godoy [facility] APPROVED REPORT EXAM: Two-dimensional and M-mode echocardiogram with Doppler and color Doppler. Other Information Quality : FairHR: 86bpm Rhythm : Atrial FibrillationTechnically limited study due to body habitus and smoking. INDICATION Atrial Fibrillation RISK FACTORS Hypertension Obesity Smoking 2D DIMENSIONS Left Atrium(2D)3.6 (1.6-4.0cm)IVSd1.2 (0.7-1.1cm) Aortic Root(2D)3.3 (2.0-3.7cm)LVDd3.2 (3.9-5.9cm) LVOT Diameter1.8 (1.8-2.4cm)PWd1.2 (0.7-1.1cm) LVDs2.1 (2.5-4.0cm)FS (%) 34.6 % SV26.6 mlLVEF(%)65.1 (>50%) Aortic Valve AoV Peak Ellis.181.5cm/sAoV VTI31.6cm AO Peak GR.13.2mmHgLVOT Peak Ellis.99.7cm/s LVOT VTI 19.74cmAO Mean GR.8mmHg CHELSI (VMAX)1.81if0EPS (VTI)1.66cm2 Mitral Valve MV E Qjlzebhh829.8cm/sMV DECEL [id number] MV A Hzcrtchj13.6cm/sMV [id number] E/A Ratio2.9MVA (PHT)4.15cm2 Pulmonary Valve PV Peak Dpbbkhgi65.6cm/sPV Peak Grad.4mmHg Tricuspid Valve TR P. Bnqnigbb304rt/sTR Peak Gr.23mmHg LEFT VENTRICLE The left ventricle is normal size. There is mild concentric left ventricular hypertrophy. The left ve ntricular systolic function is normal. The ejection fraction is 65%. There is normal LV segmental wal l motion. No left ventricle thrombus noted on this study. There is no ventricular septal defect visua lized. There is no left ventricular aneurysm. There is no mass noted in the left ventricle. RIGHT VENTRICLE The right ventricle is normal size. There is normal right ventricular wall thickness. The right ventr icular systolic function is normal. ATRIA The left atrium is moderately dilated. The right atrium size is normal. The interatrial septum is int act with no evidence for an atrial septal defect or patent foramen ovale as noted on 2-D or Doppler i maging. AORTIC VALVE The aortic valve is calcified but opens well. Doppler and Color Flow revealed no significant aortic r egurgitation. There is no significant aortic valvular stenosis. There is no aortic valvular vegetatio n. MITRAL VALVE Mitral annular calcification is mild. There is no evidence of mitral valve prolapse. There is no mitr al valve stenosis. Doppler and Color-flow revealed trace to mild mitral regurgitation. TRICUSPID VALVE The tricuspid valve is not well seen. Doppler and Color Flow revealed trace tricuspid regurgitation. There is no tricuspid valve prolapse or vegetation. There is no tricuspid valve stenosis. PULMONIC VALVE The pulmonic valve is not well seen. Doppler and Color Flow revealed no pulmonic valvular regurgitati on. There is no pulmonic valvular stenosis. GREAT VESSELS The aortic root is normal in size. The IVC is not well seen. PERICARDIAL EFFUSION There is no evidence of significant pericardial effusion. Critical Notification Critical Value: No <Conclusion> The left ventricular systolic function is normal. The ejection fraction is 65%. There is normal LV segmental wall motion. The left atrium is moderately dilated. Trace to mild mitral regurgitation. Trace tricuspid regurgitation. There is no evidence of significant pericardial effusion. Signed by : Van Wilson, Electronically Approved : 03/22/2021 11:30:47
--- NOTE | 2021-03-22 12:04 | NUR ---
Telemetry strips read by SHIRLEY Dobson.
--- NOTE | 2021-03-22 12:32 | NUR ---
SS following for discharge planning. SS reviewed pt chart and discussed with pt RN. Pt is from home with daughter and is currently on room air. Cardiology consulted. SS will continue to follow for discharge planning.
[2021-03-22] MEDS ORDERED: 0.9 % SODIUM CHLORIDE 10 ML DISP.SYRIN. IV PRN (13:00)
--- NOTE | 2021-03-22 14:02 | RAD ---
EXAM: CT Chest without IV contrast INDICATION: Reason: abnormal CXR, SOA / Spl. Instructions: / History: TECHNIQUE: Multi-detector row CT images were acquired from the thoracic inlet through the upper abdo men without the use of IV contrast. Sagittal and coronal images were acquired from the transaxial tasha a. All CT scans performed at this facility utilize dose optimization techniques as appropriate to the exam, including the following: Automated exposure control and adjustment of the mA and/or KV accordi ng to patient size (this includes techniques or standardized protocols for targeted exams where dose is indication/reason for exam). COMPARISON: Chest radiograph from prior day chest CT from 02/23/2020 FINDINGS: The absence of IV contrast limits evaluation of soft tissue pathology. LUNGS/PLEURA: Scattered increased subpleural reticulations most pronounced in the dependent portion o f bilateral lower lobes also with interspersed areas increased reticulations. No focal airspace conso lidation, pneumothorax or pleural effusion. No suspicious pulmonary nodules visualized. MEDIASTINUM: No pathologic mediastinal or hilar adenopathy. The thoracic aorta and pulmonary arteries are normal in caliber. Similar tortuous atherosclerotic appearance of the thoracic and visualized up per abdominal aorta. The heart is normal in size. No pericardial effusion. Moderate calcified coronar y atherosclerosis. The visualized thyroid and the esophagus are unremarkable. AXILLA/SOFT TISSUE: No supraclavicular or axillary adenopathy. Regional soft tissues are within paula l limits. OSSEOUS : No evidence of acute or suspicious osseous abnormality ABDOMEN: The visualized portions of the upper abdomen are unremarkable. Previously described hypoden se mass in the pancreatic head is not well visualized. IMPRESSION: Scattered increased subpleural reticulations predominantly in the dependent portions of bilateral low er lobes may represent interstitial pulmonary edema and/or worsening interstitial lung disease Electronically signed by: Wes Trejo DO (03/22/2021 1:59 PM) COUNT INCLUDES THE [facility]
--- NOTE | 2021-03-22 14:51 | PDOC ---
[facility] PROGRESS NOTE Date of Service DOS: DATE: 03/22/21 TIME: 14:42 Chief Complaint Chief Complaint New onset A. fib RVR Atypical chest pain likely related to tachyarrhythmia History of hypertension History of hypothyroidism, likely subclinical History of rheumatoid arthritis chronically on methotrexate We will increase Synthroid to 150 MCG daily, patient will need repeat TSH in 6 weeks and adjustment to goal of TSH between 6-9 Appreciate cardiology recommendationscontinue with Cardizem and start on Eliquis Pending CT chest Pulmonology consult Continue with methotrexate, History of Present Illness History of Present Illness 80-year-old female who went to her primary care doctor's office this morning. The PCP notes that she had an arrhythmia; sent her to the ER, where we discovered she has AFib with RVR. She was given 1 dose of Cardizem in the ER, that seemed to have dropped her rate back to 78. 03/22/2021 No acute events overnight. Patient's heart rate proved after Cardizem given. Heart rate in the range of 80s to high 90s. Echo completed and awaiting for final read. Pending CT of the chest due to history of rheumatoid arthritis cu rrently methotrexate. Not currently taking any prednisone. Discussed with daughter in the room also about changes in her thyroid medication. Patient is apparently very compliant with her thyroid medications about 2 months ago her thyroid medications were adjusted but is unsure whether there was any increase or decrease. Patient's chart, labs, images were reviewed and discussed with RN In addition to my E/M visit, advance care planning done with A total time of 20 minutes was spent from 12:00 to 1220 face to face in discussion regarding the patient's goals of care, CODE STATUS. Vitals/I&O Vitals/I&O: Vital Signs Date Time Temp Pulse Resp B/P (MAP) Pulse Ox O2 Delivery O2 Flow Rate FiO2 03/22/21 14:36 97.6 100 20 124/55 (78) 95 Room Air 97.6 I & O 03/21/21 03/21/21 03/22/21 15:00 23:00 07:00 Intake Total 0 ml 300 ml Output Total 0 ml 0 ml Balance 0 ml 300 ml Physical Exam General: Alert, Oriented X3, Cooperative, No acute distress Heart: Other (AFIB RVR) Abdomen: Soft, No tenderness Extremities: No cyanosis, No edema Skin: No breakdown, No significant lesion Labs Labs: Laboratory Tests Test 03/21/21 16:11 03/21/21 22:05 Urine Collection Type Void Urine Color Yellow Urine Clarity Clear Urine pH 5.5 (<5.0-8.0) Urine Specific [place] 1.015 (1.000-1.030) Urine Protein Negative mg/dL (NEG-TRACE) Urine Glucose (UA) Negative mg/dL (NEG) Urine Ketones (Stick) Negative mg/dL (NEG) Urine Blood Negative (NEG) Urine Nitrite Negative (NEG) Urine Bilirubin Negative (NEG) Urine Urobilinogen Dipstick 1.0 mg/dL (0.2 mg/dL) Urine Leukocyte Esterase Negative (NEG) Urine RBC 0 /HPF (0-2) Urine WBC 1-4 /HPF (0-4) Urine Squamous Epithelial Cells Few /LPF Urine Bacteria Few /HPF (0-FEW) Urine Hyaline Casts Occasional /HPF Urine Mucus Mod /LPF Troponin I High Sensitivity 50 ng/L (4-50) Assessment and Plan Assessmemt and Plan Problems Medical Problems: (1) Atrial fibrillation with rapid ventricular response Status: Acute Comment Review of Relevant I have reviewed the following items kerry (where applicable) has been applied. Medications: Current Medications Medications (Trade) Dose Ordered Sig/Sandra Route PRN Reason Start Time Stop Time Status Last Admin Dose Admin Levothyroxine Sodium (Synthroid) 125 mcg DAILY06 PO 03/22/21 06:00 03/22/21 10:05 Sertraline HCl (Zoloft) 150 mg DAILY PO 03/22/21 09:00 03/22/21 10:06 Vitamin D (Vitamin D3) 5,000 unit DAILY PO 03/22/21 09:00 03/22/21 10:05 Triamterene/HCTZ (Maxzide 37.5/ 25mg) 1 tab DAILY PO 03/22/21 09:00 03/22/21 14:24 DC 03/22/21 10:05 Pregabalin (Lyrica) 100 mg TID PO 03/21/21 21:00 03/22/21 10:05 Diltiazem HCl (Cardizem 24hr Cd) 120 mg DAILY PO 03/22/21 09:00 03/22/21 14:24 DC 03/22/21 10:09 Methylprednisolone Sodium Succinate (SOLU-Medrol 125MG VIAL) 125 mg 1X ONCE IV 03/22/21 11:00 03/22/21 11:05 DC 03/22/21 11:29 Digoxin (Lanoxin) 500 mcg 1X ONCE IV 03/22/21 11:15 03/22/21 11:16 DC 03/22/21 11:29 Apixaban (Eliquis) 5 mg BID PO 03/22/21 11:15 03/22/21 11:28 Justifications for Admission Other Justification KAMLESH WALLACE MD Mar 22, 2021 14:51
[2021-03-22] MEDS ORDERED: LEVOTHYROXINE 137 MCG TABLET PO SCH (16:00)
[2021-03-23] VITALS (8 sets, daily range): BP systolic 92–121; BP diastolic 54–66
[2021-03-23] MEDS ORDERED: HYDROmorphone 2 MG/ML VIAL IVP PRN (06:00)
[2021-03-23] MEDS ORDERED: PROCHLORPERAZINE 10 MG/2 ML VIAL. IVP PRN (06:00)
[2021-03-23] MEDS ORDERED: MORPHINE SULFATE 2 MG/ML INJ. IVP PRN (06:00)
[2021-03-23] MEDS ORDERED: fentaNYL PF VIAL 100 MCG/2 ML VIAL IVP PRN ×2 (06:00)
[2021-03-23] MEDS ORDERED: IV RINGERS,LACTATED 1000ML 1,000 ML IV SCH (06:00)
[2021-03-23] MEDS ORDERED: LEVOTHYROXINE 150 MCG TABLET PO SCH (06:00)
[2021-03-23] MEDS: APIXABAN 5 MG TABLET. PO SCH (08:18)
[2021-03-23] MEDS: SERTRALINE 50 MG TABLET. PO SCH (08:18)
[2021-03-23] MEDS: PREGABALIN 50 MG CAPSULE PO SCH (08:18)
[2021-03-23] MEDS ORDERED: BENZOCAINE ONE 20% MUCOSAL SPRAY. MM (08:30)
[2021-03-23] MEDS ORDERED: LIDOCAINE 2% TOPICAL JELLY 30GM TUBE. TP ONE (08:30)
[2021-03-23] MEDS ORDERED: LIDOCAINE 2% VISCOUS 15 ML SOLUTION. SWSW ONE (08:30)
[2021-03-23 08:59] LABS: CHOLESTEROL/HDL RATIO 4.7
[2021-03-23] MEDS: CHOLECALCIFEROL (VITAMIN D3) 5,000 UNIT CAPSULE PO SCH (09:00)
--- NOTE | 2021-03-23 09:27 | PDOC ---
PULMONARY PROGRESS NOTES DATE: 03/23/21 TIME: 09:25 Vitals Vital Signs Date Time Temp Pulse Resp B/P (MAP) Pulse Ox O2 Delivery O2 Flow Rate FiO2 03/23/21 07:00 97.7 73 18 102/59 (73) 92 Nasal Cannula 1.0 97.7 Labs Laboratory Tests Test 03/21/21 10:35 03/21/21 14:40 03/21/21 16:11 03/21/21 22:05 White Blood Count 5.7 x10^3/uL (4.0-11.0) Red Blood Count 4.03 x10^6/uL (3.50-5.40) Hemoglobin 12.5 g/dL (12.0-15.5) Hematocrit 38.5 % (36.0-47.0) Mean Corpuscular Volume 96 fL (79-100) Mean Corpuscular Hemoglobin 31 pg (25-35) Mean Corpuscular Hemoglobin Concent 33 g/dL (31-37) Red Cell Distribution Width 25.4 % (11.5-14.5) Platelet Count 321 x10^3/uL (140-400) Neutrophils (%) (Auto) 58 % (31-73) Lymphocytes (%) (Auto) 20 % (24-48) Monocytes (%) (Auto) 18 % (0-9) Eosinophils (%) (Auto) 3 % (0-3) Basophils (%) (Auto) 1 % (0-3) Neutrophils # (Auto) 3.3 x10^3/uL (1.8-7.7) Lymphocytes # (Auto) 1.1 x10^3/uL (1.0-4.8) Monocytes # (Auto) 1.0 x10^3/uL (0.0-1.1) Eosinophils # (Auto) 0.2 x10^3/uL (0.0-0.7) Basophils # (Auto) 0.1 x10^3/uL (0.0-0.2) Segmented Neutrophils % 50 % (35-66) Band Neutrophils % 11 % (0-9) Lymphocytes % 14 % (24-48) Monocytes % 22 % (0-10) Eosinophils % 2 % (0-5) Basophils % 1 % (0-3) Promyelocytes % % (0-0) Toxic Granulation Slight Platelet Estimate Adequate (ADEQUATE) Hypochromasia Mod Anisocytosis Marked Ovalocytes Few Schistocytes Few Sodium Level 133 mmol/L (136-145) Potassium Level 3.6 mmol/L (3.5-5.1) Chloride Level 98 mmol/L (98-107) Carbon Dioxide Level 26 mmol/L (21-32) Anion Gap 9 (6-14) Blood Urea Nitrogen 15 mg/dL (7-20) Creatinine 0.8 mg/dL (0.6-1.0) Estimated GFR (Cockcroft-Gault) 69.0 BUN/Creatinine Ratio 19 (6-20) Glucose Level 95 mg/dL (70-99) Calcium Level 8.6 mg/dL (8.5-10.1) Magnesium Level 1.8 mg/dL (1.8-2.4) Total Bilirubin 0.9 mg/dL (0.2-1.0) Aspartate Amino Transf (AST/SGOT) 30 U/L (15-37) Alanine Aminotransferase (ALT/SGPT) 27 U/L (14-59) Alkaline Phosphatase 94 U/L (46-116) Troponin I High Sensitivity 32 ng/L (4-50) 37 ng/L (4-50) 50 ng/L (4-50) TR-Byd-X-Type Natriuretic Peptide 3231 pg/mL (0-449) Total Protein 7.3 g/dL (6.4-8.2) Albumin 3.5 g/dL (3.4-5.0) Albumin/Globulin Ratio 0.9 (1.0-1.7) Thyroid Stimulating Hormone (TSH) 11.925 uIU/mL (0.358-3.74) Free Thyroxine 1.37 ng/dL (0.76-1.46) Urine Collection Type Void Urine Color Yellow Urine Clarity Clear Urine pH 5.5 (<5.0-8.0) Urine Specific [place] 1.015 (1.000-1.030) Urine Protein Negative mg/dL (NEG-TRACE) Urine Glucose (UA) Negative mg/dL (NEG) Urine Ketones (Stick) Negative mg/dL (NEG) Urine Blood Negative (NEG) Urine Nitrite Negative (NEG) Urine Bilirubin Negative (NEG) Urine Urobilinogen Dipstick 1.0 mg/dL (0.2 mg/dL) Urine Leukocyte Esterase Negative (NEG) Urine RBC 0 /HPF (0-2) Urine WBC 1-4 /HPF (0-4) Urine Squamous Epithelial Cells Few /LPF Urine Bacteria Few /HPF (0-FEW) Urine Hyaline Casts Occasional /HPF Urine Mucus Mod /LPF Test 03/23/21 07:55 Triglycerides Level 54 mg/dL (0-150) Cholesterol Level 210 mg/dL (0-200) LDL Cholesterol, Calculated 154 mg/dL (0-100) VLDL Cholesterol, Calculated 11 mg/dL (0-40) Non-HDL Cholesterol Calculated 165 mg/dL (0-129) HDL Cholesterol 45 mg/dL (40-60) Cholesterol/HDL Ratio 4.7 Laboratory Tests Test 03/23/21 07:55 Triglycerides Level 54 mg/dL (0-150) Cholesterol Level 210 mg/dL (0-200) LDL Cholesterol, Calculated 154 mg/dL (0-100) VLDL Cholesterol, Calculated 11 mg/dL (0-40) Non-HDL Cholesterol Calculated 165 mg/dL (0-129) HDL Cholesterol 45 mg/dL (40-60) Cholesterol/HDL Ratio 4.7 Medications Active Scripts Medications Dose Route/Sig Max Daily Dose Days Date Category Methotrexate (Methotrexate Sodium) 2.5 Mg Tablet 7 Tab PO WEEKLY 03/21/21 Reported Lyrica (Pregabalin) 100 Mg Capsule 1 Cap PO BID 30 03/21/21 Reported Hydrocodone-Acetamin 5-325 mg (Hydrocodone/Acetaminophen) 1 Each Tablet 1-2 Each PO PRN Q4-6HRS PRN 06/01/20 Reported Levothyroxine Sodium 125 Mcg Tablet 1 Tab PO DAILY 05/28/20 Reported Acetaminophen-Diphenhyd 500-25 (Acetaminophen/Diphenhydramine) 1 Each Tablet 2 Each PO HS 05/28/20 Reported Vitamin D3 (Cholecalciferol (Vitamin D3)) 1,250 Mcg Capsule 5,000 Mcg PO DAILY 05/28/20 Reported Tramadol Hcl 50 Mg Tablet 50 Mg PO Q4HRS PRN 05/28/20 Reported Triamterene-Hctz 37.5-25 Mg Cp (Triamterene/Hydrochlorothiazid) 1 Each Capsule 1 Cap PO DAILY 02/01/15 Reported Zoloft (Sertraline Hcl) 25 Mg Tablet 100 Mg PO DAILY 11/08/13 Reported Impression . Progressive dyspnea, multifactorial CT reviewed, mild interstitial lung disease, related to possibility of rheumatoid arthritis, doubt methotrexate. I compared it to a year ago, this not much change Acute exacerbation of COPD Concur with current medical management Follow-up in my office in April we will obtain outpatient pulmonary function testing Continue steroids until she sees me in the office, discussed with Dr. William Concur with Dr. Leon, avoid amiodarone I would not discontinue methotrexate at this time KRISTAN MONTALVO MD Mar 23, 2021 09:27
--- NOTE | 2021-03-23 11:10 | NUR ---
SS following up with discharge planning. SS reviewed pt chart and discussed with pt RN. Pt is currently requiring oxygen at one liter nasal canula. Cardiology and Pulmonology following. Pt on Cardizem drip. Pt having HENNA with Cardioversion today. SS will continue to follow for discharge planning.
--- NOTE | 2021-03-23 11:42 | PDOC ---
VICTOR MANUEL OCAMPO HOT SEALING MACHINE OPERATOR 03/23/21 1142: CARDIO Progress Notes Date and Time Date of Service 03/23/2021 Time of Evaluation 1050 Vitals Vitals Vital Signs Date Time Temp Pulse Resp B/P (MAP) Pulse Ox O2 Delivery O2 Flow Rate FiO2 03/23/21 11:00 98.0 91 18 114/63 (80) 91 Nasal Cannula 2.0 98.0 Weight Weight [ ] Input and Output Intake and Output Intake and Output 03/23/21 07:00 Intake Total 200 ml Output Total 1025 ml Balance -825 ml Intake Oral 200 ml Output Urine Total 1025 ml # Voids 1 Laboratory Labs Laboratory Tests Test 03/23/21 07:55 Triglycerides Level 54 mg/dL (0-150) Cholesterol Level 210 mg/dL (0-200) LDL Cholesterol, Calculated 154 mg/dL (0-100) VLDL Cholesterol, Calculated 11 mg/dL (0-40) Non-HDL Cholesterol Calculated 165 mg/dL (0-129) HDL Cholesterol 45 mg/dL (40-60) Cholesterol/HDL Ratio 4.7 Physical Exam HEENT: Neck Supple W Full Motion Chest: Symmetric LUNGS: Other (diminished bases) Heart: irregularly irregular (AFIB) Abdomen: Soft N/T Extremities: No Calf Tenderness Neurology: alert, oriented, follow commands Assessment Assessment 1. AFIB RVR: new finding no rate controlled. EF and WM nml 2. Chest pain: likely from above 3. HTN: controlled 4. Hypothyroidism: TSH not on goal per PCP 5. Hx of RA and fibromyalgia: on methotrexate 6. AECOPD: possible ILD Recommendations 1. Change cardizem to PO 2. Eliquis for stroke prevention 3. Consult pulmonary 4. Consider for outpt ischemic w/u Justicifation of Admission Dx: Justifications for Admission: Justification of Admission Dx: Yes ASIM MURPHY MD 03/24/21 1430: CARDIO Progress Notes Plan Plan Late entry for 03/23/21. Pt. seen and examined. Agree with above LACQUER PIN PRESS OPERATOR note. Supportive care. DAMARISVICTOR MANUEL Burnett HOT SEALING MACHINE OPERATOR Mar 23, 2021 11:42 ASIM MURPHY MD Mar 24, 2021 14:30
[2021-03-23] MEDS ORDERED: APIX5TAB PO (12:59)
[2021-03-23] MEDS ORDERED: PRED-220 PO (12:59)
[2021-03-23] MEDS ORDERED: DILT240C33 PO (12:59)
[2021-03-23] MEDS ORDERED: LEVO150T5 PO (12:59)
--- NOTE | 2021-03-23 13:00 | DISCH ---
DISCHARGE INSTRUCTIONS Condition on Discharge Condition on Discharge: Stable Activity After Discharge Activity Instructions for Disc: Activity as tolerated, Other, see below Lifting Instructions after Dis: No pulling or pushing Exercise Instruction after Dis: Walk 15 min, 3 x per day Weight Bearing Status after Di: As tolerated Diet after Discharge Diet after Discharge: Cardiac, Regular Wound Incision Care Wound/Incision Care: Ice to area for comfort, Do not change dressing Contacting the DR. after DC Call your doctor for: Concerns you may have Follow-Up Follow up with: PCP within 2 weeks of discharge Follow Up With: Pulmonology as scheduled regarding your lung findings KAMLESH WALLACE MD Mar 23, 2021 13:00
--- NOTE | 2021-03-23 13:01 | CONS ---
DATE OF CONSULTATION: 03/23/2021 ATTENDING PHYSICIAN: Dr. Rodríguez. CONSULTING PHYSICIAN: Dr. Forte. REASON FOR CONSULTATION: The patient is seen in pulmonary consultation at the request of Dr. Prescott for abnormal CT chest, possible interstitial lung disease. HISTORY OF PRESENT ILLNESS: The patient is an 80-year-old that presented to the primary care doctor's office, Dr. Ignacio for evaluation. She was found to have new onset AFib with rapid ventricular response. She was intermittently dizzy. The patient was admitted. Part of her workup included a chest x-ray. She had some crackles on exam. There was concern about the possibility of interstitial lung disease. A CT chest was obtained. I was asked to see her in consultation. I reviewed the CT, there is scattered subpleural reticulation predominantly in the basilar lower lobes. I have compared it to the film of 02/23/2020, there has been a slight increase in interstitial prominence. The patient has a cough, mostly nonproductive. She smoked, but quit many years ago. She normally does not wear oxygen. She was recently diagnosed with COPD, she was started on an inhaler. She has a prior history of rheumatoid arthritis. She has been on methotrexate for quite a long time. She states that the methotrexate has been very useful. PAST MEDICAL HISTORY: 1. As indicated above, rheumatoid arthritis, on methotrexate, which has been very useful to control her symptoms. 2. Hypertension. 3. COPD. 4. Tobacco dependent. 5. Allergic rhinitis. 6. Up to date on COVID-19 vaccination with J and J vaccine. REVIEW OF SYSTEMS: CONSTITUTIONAL: No fever or chills. EYES: No change in visual acuity. HENT: No nasal congestion or sore throat. PULMONARY: As indicated above. CARDIOVASCULAR: As indicated above. GASTROINTESTINAL: No nausea, vomiting, diarrhea. GENITOURINARY: No dysuria or frequency. MUSCULOSKELETAL: No localized muscle aches or joint pains. SKIN: No new skin rashes. NEUROLOGIC: No headaches, diplopia or blurred vision. ALLERGIES: SULFA AND SCOPOLAMINE. SOCIAL HISTORY: She quit tobacco 35 years ago. FAMILY HISTORY: Noncontributory. CURRENT MEDICATIONS: List was reviewed. Once again, the patient has been on methotrexate for quite some time, has been very useful for her to control her symptoms. HOME MEDICATIONS: List was reviewed. She was on methotrexate, hydrocodone, tramadol, Lyrica, sertraline, triamterene, hydrochlorothiazide, levothyroxine, and vitamin D supplement. PHYSICAL EXAMINATION: GENERAL: The patient appeared to be of stated age. VITAL SIGNS: Vital signs are stable. O2 saturation greater than 92%, currently on room air. HEENT: EYES, sclerae were nonicteric. NECK: Jugular venous distention could not be assessed secondary to body habitus. CHEST: Full expansion. LUNGS: Crackles in the bases with mild expiratory wheeze, some rhonchi. CARDIOVASCULAR: Regular rate and rhythm with S1, S2, no S3. ABDOMEN: Soft, obese. EXTREMITIES: No clubbing, cyanosis. Minimal edema. NEUROLOGIC: The patient was awake, alert, following commands. A detailed neuro exam was not performed. LABORATORY DATA: Labs were reviewed. White count was normal, hemoglobin and hematocrit were normal. Troponin level was not elevated. Electrolytes were normal. BUN and creatinine were normal. TSH was elevated. BNP was elevated. CT chest reviewed as indicated above. In comparison to previous scan, there is mild interstitial lung disease, mostly in the bases. IMPRESSION: 1. Progressive dyspnea, multifactorial. 2. Abnormal CT revealing mild interstitial lung disease related to the possibility of rheumatoid arthritis, doubt methotrexate. I compared it to a year ago, there has not been much change. 3. Acute exacerbation of chronic obstructive pulmonary disease. 4. Atrial fibrillation with rapid ventricular response. 5. Tobacco dependence, in remission. 6. Hypertension. 7. Hypothyroidism. PLAN: 1. Recommend continue steroids, discuss case with Dr. Boateng. I would remain the patient on steroids until 30 mg a day until she sees me in the office. 2. No need to discontinue methotrexate at this time. 3. Avoid amiodarone. 4. A 6-minute walk prior to discharge. 5. Continue anticoagulation for atrial fibrillation. 6. Full pulmonary function testing as an outpatient. The above was discussed both with the patient and her daughter at the bedside. I do appreciate the privilege in sharing in the patient's care. MAMADOU MONTIEL: [place] TID: [id number]
--- NOTE | 2021-03-23 16:45 | NUR ---
Discharged patient to home. Discharge instructions given. piv and heart monitor removed. Escorted patient off unit per wheelchair into a private vehicle.
[2021-03-28] MEDS ORDERED: METHOTREXATE SODIUM 2.5 MG TABLET PO SCH (09:00)
--- NOTE | 2021-03-30 20:11 | PDOC3 ---
[facility]-Discharge Summary Date of Admission: Date of Admission: Mar 21, 2021 Date of Discharge: Date of Discharge: Mar 23, 2021 Discharge Diagnosis: Discharge Diagnosis: New onset A. fib RVR Atypical chest pain likely related to tachyarrhythmia History of hypertension History of hypothyroidism, likely subclinical History of rheumatoid arthritis chronically on methotrexate Consults: Consults: Pulmonology PLAN: 1. Recommend continue steroids, discuss case with Dr. Boateng. I would remain the patient on steroids until 30 mg a day until she sees me in the office. 2. No need to discontinue methotrexate at this time. 3. Avoid amiodarone. 4. A 6-minute walk prior to discharge. 5. Continue anticoagulation for atrial fibrillation. 6. Full pulmonary function testing as an outpatient. Hospital Course: Hospital Course: 80-year-old female who went to her primary care doctor's office this morning. The PCP notes that she had an arrhythmia; sent her to the ER, where we discovered she has AFib with RVR. She was given 1 dose of Cardizem in the ER, that seemed to have dropped her rate back to 78. 03/22/2021 No acute events overnight. Patient's heart rate proved after Cardizem given. Heart rate in the range of 80s to high 90s. Echo completed and awaiting for final read. Pending CT of the chest due to history of rheumatoid arthritis currently methotrexate. Not currently taking any prednisone. Discussed with daughter in the room also about changes in her thyroid medication. Patient is apparently very compliant with her thyroid medications about 2 months ago her thyroid medications were adjusted but is unsure whether there was any increase or decrease. Patient's chart, labs, images were reviewed and discussed with RN By day of discharge, pt was clinically stable and ready for discharge. Rest of hospital course was uneventful Disposition: Disposition/Orders: D/C to Home Activity: Activity: Resume previous activity Medications: Home Meds Active Scripts Prednisone (PREDNISONE ) 10 Mg Tablet, 3 TAB PO DAILY for RA for 30 Days, #90 TAB 0 Refills Prov:KAMLESH WALLACE MD 03/23/21 Levothyroxine Sodium (LEVOTHYROXINE SODIUM) 150 Mcg Tablet, 150 MCG PO DAILY06 for hypothyroidism for 30 Days, #30 TAB 2 Refills Prov:KAMLESH WALLACE MD 03/23/21 Diltiazem HCl (Diltiazem 24Hr Cd) 240 Mg Cap.er.24h, 240 MG PO DAILY for heart rate for 30 Days, #30 CAP.SR 2 Refills Prov:KAMLESH WALLACE MD 03/23/21 Apixaban (ELIQUIS) 5 Mg Tablet, 5 MG PO BID for stroke prophylaxis for 30 Days, #60 TAB 2 Refills Prov:KAMLESH WALLACE MD 03/23/21 Reported Medications Methotrexate Sodium (METHOTREXATE) 2.5 Mg Tablet, 7 TAB PO WEEKLY for unknown, #32 TAB 2 Refills 03/21/21 Pregabalin (LYRICA) 100 Mg Capsule, 1 CAP PO BID for unknown for 30 Days, #60 CAP 2 Refills 03/21/21 Hydrocodone/Acetaminophen (Hydrocodone-Acetamin 5-325 mg) 1 Each Tablet, 1-2 EACH PO PRN Q4-6HRS PRN for PAIN, TAB 06/01/20 Levothyroxine Sodium (LEVOTHYROXINE SODIUM) 125 Mcg Tablet, 1 TAB PO DAILY for hypothyroidism, #30 TAB 5 Refills 05/28/20 Cholecalciferol (Vitamin D3) (Vitamin D3) 1,250 Mcg Capsule, 5000 MCG PO DAILY for supplement, CAP 05/28/20 Tramadol Hcl (TRAMADOL HCL) 50 Mg Tablet, 50 MG PO Q4HRS PRN for PAIN, TAB 05/28/20 Sertraline Hcl (ZOLOFT) 25 Mg Tablet, 100 MG PO DAILY for depression, TAB 0 Refills 11/08/13 Discontinued Reported Medications Acetaminophen/Diphenhydramine (ACETAMINOPHEN-DIPHENHYD 500-25) 1 Each Tablet, 2 EACH PO HS for sleep, TAB 05/28/20 Triamterene/Hydrochlorothiazid (TRIAMTERENE-HCTZ 37.5-25 MG CP) 1 Each Capsule, 1 CAP PO DAILY, CAP 02/01/15 Scheduled Apixaban (Eliquis), 5 MG PO BID Cholecalciferol (Vitamin D3) (Vitamin D3), 5,000 MCG PO DAILY, (Reported) Diltiazem HCl (Diltiazem 24Hr Cd), 240 MG PO DAILY Levothyroxine Sodium (Levothyroxine Sodium), 1 TAB PO DAILY, (Reported) Levothyroxine Sodium (Levothyroxine Sodium), 150 MCG PO DAILY06 Methotrexate Sodium (Methotrexate), 7 TAB PO WEEKLY, (Reported) Prednisone (Prednisone ), 3 TAB PO DAILY Pregabalin (Lyrica), 1 CAP PO BID, (Reported) Sertraline Hcl (Zoloft), 100 MG PO DAILY, (Reported) Scheduled PRN Hydrocodone/Acetaminophen (Hydrocodone-Acetamin 5-325 mg), 1-2 EACH PO PRN Q4- 6HRS PRN for PAIN, (Reported) Tramadol Hcl (Tramadol Hcl), 50 MG PO Q4HRS PRN for PAIN, (Reported) Discontinued Medications Acetaminophen/Diphenhydramine (Acetaminophen-Diphenhyd 500-25), 2 EACH PO HS, (Reported) Triamterene/Hydrochlorothiazid (Triamterene-Hctz 37.5-25 Mg Cp), 1 CAP PO DAILY, (Reported) Justicifation of Admission Dx: Justifications for Admission: Justification of Admission Dx: Yes KAMLESH WALLACE MD Mar 30, 2021 20:11
== END 2021-03-23 16:28 | disposition home or self-care (01) | DRG 309 ==
LOC: ER 10:20 → ED HOLD 12:04 → 6 SOUTH 13:20 → OBSVTOIN 03-23 10:22
PROVIDERS: ADMIT Student in an Organized Health Care Education/Training Program; ATTEND Student in an Organized Health Care Education/Training Program
DX: I48.91 Unspecified atrial fibrillation (principal); J44.1 Chronic obstructive pulmonary disease with (acute) exacerbation; J84.9 Interstitial pulmonary disease, unspecified; E03.9 Hypothyroidism, unspecified; F17.201 Nicotine dependence, unspecified, in remission; G89.29 Other chronic pain; I10 Essential (primary) hypertension; M06.9 Rheumatoid arthritis, unspecified; M79.7 Fibromyalgia; Z83.3 Family history of diabetes mellitus; Z90.710 Acquired absence of both cervix and uterus; Z96.642 Presence of left artificial hip joint; F32.A Depression, unspecified; M19.90 Unspecified osteoarthritis, unspecified site; Z79.899 Other long term (current) drug therapy; R77.8 Other specified abnormalities of plasma proteins; Z88.2 Allergy status to sulfonamides; Z88.8 Allergy status to other drugs, medicaments and biological substances; Z87.01 Personal history of pneumonia (recurrent)
CPT/HCPCS: 36415; 71045; 71250; 80053; 80061; 81001; 83735; 83880; 84439; 84443; 84484; 85007; 85025; 85651; 93005; 93306; 96372; 96374; G0378; G0379; J1160; J1650; J2930; J3490; 99285-25